=== PATIENT | female | born 1990 | race Caucasian/White ===

== ENCOUNTER 2020-10-05 01:52 | Observation (INO) | payer BC, SELFPAY ==
[2020-10-05] VITALS (14 sets, daily range): BP systolic 101–140; BP diastolic 56–119; PULSE 68–145; RESP 14–21; TEMP 35.8–37.1; O2SAT 99–100
--- NOTE | ~2020-10-05 | US_ITS ---
EXAMINATION: US pelvic complete w TV DATE: 10/05/2020 08:52 INDICATION: Incomplete . Hemorrhage. Comparison:No prior studies for comparison. TECHNIQUE: Multiple transabdominal and endovaginal sonographic images of the pelvis performed. FINDINGS: The uterus measures 10 x 5.9 x 6.8 cm. The endometrial complex measures 2.8 cm in the lower uterus. Endometrium is heterogeneous and ill-defined. The right ovary measures 2.4 x 1.5 x 1.6 cm. and the left ovary measures 2 x 1.4 x 2.4 cm. There are small follicles in each ovary. There is no free fluid in the pelvis. There are no abnormal masses seen on either side. IMPRESSION: 1. Thickened heterogeneous endometrium, suspicious for retained products of conception. Reviewed, dictated and finalized at location A. CE MANAGER IMPRESSION: 1. Thickened heterogeneous endometrium, suspicious for retained products of con ception.
--- NOTE | 2020-10-05 02:27 | ED.FEMALEGU ---
HPI - Female Genitourinary General Chief complaint: Vaginal Bleeding Stated complaint: vaginal bleeding Time Seen by Provider: 10/05/20 02:17 History of Present Illness HPI Narrative: Patient is a 29-year-old female who presents ER with vaginal bleeding. Patient found out 11 days ago that she was suffering a miscarriage at 10 weeks of . There is no heartbeat. Patient was doing expectant management at home. She had lost her mucous plug sometime last week. This evening she had a cline of water like her water broke. She then started having some bleeding. She started bleeding through a pad every 20 minutes beginning at 11 PM. Bleeding did not slow down and continued so she opted to come to the ER for further evaluation. No lightheadedness or dizziness. She is not having any lower abdominal pain. No fevers/chills/sweats. She is not on any blood thinners. She follows with Dr. Oglesby. Related Data Home Medications Medication Instructions Recorded Confirmed No Home Medications 10/05/20 Allergies Allergy/AdvReac Type Severity Reaction Status Date / Time No Known Allergies Allergy Verified 10/05/20 04:47 Review of Systems Review of Systems: All systems reviewed & are unremarkable except as noted in HPI and below Constitutional: Constitutional: Denies chills and Denies fatigue Gastrointestinal: Gastrointestinal: Denies abdominal pain, Denies nausea and Denies vomiting Genitourinary: Genitourinary: Reports abnormal vaginal bleeding, Denies dysuria, Denies pelvic pain and Denies vaginal discharge Neurologic: Denies confusion, Denies dizziness and Denies weakness PMFSH Past Medical History Medical History (Updated 10/05/20 @ 05:15 by Freeman Mendez MD) Healthy female adult Surgical History Surgical History (Updated 10/05/20 @ 02:29 by Freeman Mendez MD) No history of previous surgery Family History Family History (Updated 10/05/20 @ 04:58 by Dexter Acuna RN) Grandparent Cerebrovascular accident Mother Chronic obstructive pulmonary disease Mother Hypertension Social History Social History (Updated 10/05/20 @ 02:29 by Freeman Mendez MD) Smoking status: Never smoker Alcohol intake: never Substance use: never Substance use type: does not use Gender identity (if verbalized by the patient): Female Sexual Orientation (if Verbalized by the Patient): Straight or Heterosexual Spiritual care concerns: No Exam Narrative: Exam Narrative: GENERAL: Well-appearing, well-nourished, and in no acute distress. HEAD: Normocephalic, atraumatic. CHEST: Clear to auscultation. No respiratory distress. HEART: Tachycardic and regular. Normal peripheral pulses. ABDOMEN: Soft, nontender, nondistended. : Normal external genitalia. Large amount of clot within the vagina, when cleared there is some pooling of bright red blood without overt hemorrhage. Cervical os is open with products of conception protruding. Small amount able to be physically removed. EXTREMITIES: Normal range of motion. No edema. SKIN: Warm, dry, no rash. NEURO: Alert and oriented x3. Course Course Emergency Course: Patient heart rate significantly improved with 1 L IV fluid but then great increase her repeat IV fluid ordered. Discussed case with Dr. Oglesby. Is recommended patient be admitted for observation. Patient will receive Cytotec 1000 mcg vaginally to help with passage of products of conception. Patient verbalized understanding of treatment plan. Blood pressure stable. Vital Signs Vital signs: Vital Signs Temperature 96.4 F L 10/05/20 01:57 Pulse Rate 145 H 10/05/20 01:57 Respiratory Rate 18 10/05/20 01:57 Blood Pressure 140/92 H 10/05/20 01:57 Pulse Oximetry 100 10/05/20 01:57 Temperature 97.8 F 10/05/20 03:53 Pulse Rate 119 H 10/05/20 03:53 Respiratory Rate 21 H 10/05/20 03:53 Blood Pressure 117/74 10/05/20 03:53 Pulse Oximetry 100 10/05/20 03:53 [facility] -
[2020-10-05] MEDS: SODIUM CHLORIDE 0.9% IV 1,000 ML 999 ML IV CONT ×2 (02:32→03:51)
[2020-10-05 02:52] LABS: Anion Gap 11 mmol/L (8-16); Blood Urea Nitrogen 6 mg/dL (7-17); Carbon Dioxide 21 mmol/L (22-30); Chloride 105 mmol/L (98-107); Estimated CRCL calculation 151 ml/min; Estimated Glomerular Filt Rate > 60; Glucose 125 mg/dL (65-105); Potassium 3.6 mmol/L (3.4-5.0); Sodium 137 mmol/L (137-145)
[2020-10-05 02:59] LABS: Prothrombin Time 13.5 Seconds (11.1-14.7)
[2020-10-05 03:00] LABS: Partial Thromboplastin Time 28.1 SECONDS (22.3-36.8)
[2020-10-05 03:09] LABS: Basophils Absolute Auto 0.1 K/mm3 (0.0-0.1); Basophils Percent Auto 0.4 % (0.2-1.2); Eosinophils Absolute Auto 0.1 K/mm3 (0-0.3); Eosinophils Percent Auto 0.6 % (0-4.4); Hematocrit 34.1 % (37.0-47.0); Hemoglobin 11.6 g/dL (12.0-15.0); Immature Granulocyte Absolute 0.05 K/mm3 (0.00-0.031); Immature Granulocyte Percent A 0.4 % (0-0.5); Lymphocytes Absolute Auto 2.93 K/mm3 (0.9-3.2); Lymphocytes Percent Auto 21.1 % (18.3-44.2); Mean Corpuscular Hemoglobin 28.7 pg (26-34); Mean Corpuscular Volume 84.4 fl (80-100); Mean Platelet Volume 9.3 fl (7.4-10.4); Monocytes Absolute Auto 0.7 K/mm3 (0.1-0.6); Monocytes Percent Auto 4.8 % (2.6-8.5); Neutrophils Absolute Auto 10.1 K/mm3 (1.3-6.7); Neutrophils Percent Auto 72.7 % (45.5-73.1); Platelet Count Result 277 k/mm3 (150-375); Red Blood Count 4.04 M/mm3 (4.2-5.4); Red Cell Distribution Width 12.3 % (11.5-14.5); White Blood Count 13.9 K/mm3 (4.5-10.0)
[2020-10-05] MEDS: miSOPROStol 200 MCG TABLET 1000 MCG VAGINAL (03:50)
--- NOTE | 2020-10-05 04:46 | ADMGEN ---
This patient, Delma Valles, was admitted to Medical Room 349-01. Patient/family oriented to hospital policies and general routines including ID bracelet, bed and alarms, visiting hours, pain management, procedures, bathroom and other care routines, personal items, smoking policy, room service/diet, and visiting hours. Information on how to activate the Rapid Response Team has been discussed. Patient/Family are encouraged to report perceived risks to care and to ask questions if they do not understand what they are told or what they should do.
[2020-10-05] MEDS: SODIUM CHLORIDE 0.9% IV 1,000 ML 125 ML IV CONT (05:13)
--- NOTE | 2020-10-05 05:33 | PC.NURSE ---
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 c/o abd cramping after recieving cytotec in ed. tylenol 1,000mg iv. sbp down to 117. ivf's ns started at 125cc/hr. denies dizziness. instructed to rise slowly from seated or supine position. stat hh. recheck sbp 101. cont ivf's.
[2020-10-05 06:09] LABS: Hematocrit 29.1 % (37.0-47.0); Hemoglobin 9.8 g/dL (12.0-15.0)
--- NOTE | 2020-10-05 06:33 | PC.NURSE ---
called dr leong with up date on patient's bp and hh. orders recieved. dr mueller stated will see patient on rounds within the hour.
[2020-10-05 07:55] LABS: Hematocrit 25.8 % (37.0-47.0); Hemoglobin 8.8 g/dL (12.0-15.0)
--- NOTE | 2020-10-05 09:30 | PC.NURSE ---
Patient going down to surgery for D&C.
--- NOTE | 2020-10-05 09:43 | WPDANESEPPF ---
Anes - Initial Pre Proc Eval Procedure: Operation Date: 10/05/20 10:00 Proposed Procedures p Suction Dilation and Curettage - Tanner Oglesby MD Date/Time: 10/05/20 09:43 Surgeon: Tanner Oglesby MD Pre Op Diagnosis: miscarriage with hemorrhage Patient Data Age: 29 Gender: F Height: 1.57 m Weight: 90.72 kg Last Vital Signs Temp 37.1 C 10/05/20 06:07 Pulse 120 H 10/05/20 06:07 Resp 14 10/05/20 06:07 BP 140/78 10/05/20 06:07 Pulse Ox 100 10/05/20 06:07 Allergies Allergy/AdvReac Type Severity Reaction Status Date / Time No Known Allergies Allergy Verified 10/05/20 04:47 Home Medications Medication Instructions Recorded Confirmed Type No Home Medications 10/05/20 10/05/20 History Laboratory Tests 10/05/20 10/05/20 10/05/20 02:33 02:33 02:33 WBC 13.9 K/mm3 H K/mm3 (4.5-10.0) RBC 4.04 M/mm3 L M/mm3 (4.2-5.4) Hgb 11.6 g/dL L g/dL (12.0-15.0) Hct 34.1 % L % (37.0-47.0) MCV 84.4 fl fl (80-100) MCH 28.7 pg pg (26-34) MCHC 34.0 g/dl g/dl (32-36) RDW 12.3 % % (11.5-14.5) Plt Count 277 k/mm3 k/mm3 (150-375) MPV 9.3 fl fl (7.4-10.4) Immature Gran % (Auto) 0.4 % % (0-0.5) Neut % (Auto) 72.7 % % (45.5-73.1) Lymph % (Auto) 21.1 % % (18.3-44.2) [place] % (Auto) 4.8 % % (2.6-8.5) Eos % (Auto) 0.6 % % (0-4.4) Baso % (Auto) 0.4 % % (0.2-1.2) Lymph # (Auto) 2.93 K/mm3 K/mm3 (0.9-3.2) [place] # (Auto) 0.7 K/mm3 H K/mm3 (0.1-0.6) Eos # (Auto) 0.1 K/mm3 K/mm3 (0-0.3) Baso # (Auto) 0.1 K/mm3 K/mm3 (0.0-0.1) Abs Immat Gran (auto) 0.05 K/mm3 H K/mm3 (0.00-0.031) Absolute Neuts (auto) 10.1 K/mm3 H K/mm3 (1.3-6.7) Absolute Nucleated RBC 0.0 K/mm3 K/mm3 (0.0-0.012) Nucleated RBC % 0.0 % % (0.0-0.2) PT 13.5 Seconds Seconds (11.1-14.7) INR 1.0 APTT 28.1 SECONDS SECONDS (22.3-36.8) Sodium 137 mmol/L mmol/L (137-145) Potassium 3.6 mmol/L mmol/L (3.4-5.0) Chloride 105 mmol/L mmol/L (98-107) Carbon Dioxide 21 mmol/L L mmol/L (22-30) Anion Gap 11 mmol/L mmol/L (8-16) BUN 6 mg/dL L mg/dL (7-17) Creatinine 0.50 mg/dL L mg/dL (0.7-1.0) Estim Creat Clear Calc 151 ml/min ml/min Estimated GFR > 60 (59 - ) Glucose 125 mg/dL H mg/dL (65-105) Calcium 9.0 mg/dL mg/dL (8.4-10.2) Beta HCG, Quant 1351.70 mIU/ML mIU/ML Blood Type Antibody Screen Screen Baby's Blood Type Baby's JAIME Doses of RhIg Required 10/05/20 10/05/20 10/05/20 02:33 05:30 07:46 WBC RBC Hgb 9.8 g/dL L g/dL 8.8 g/dL L g/dL (12.0-15.0) (12.0-15.0) Hct 29.1 % L % 25.8 % L % (37.0-47.0) (37.0-47.0) MCV MCH MCHC RDW Plt Count MPV Immature Gran % (Auto) Neut % (Auto) Lymph % (Auto) [place] % (Auto) Eos % (Auto) Baso % (Auto) Lymph # (Auto) [place] # (Auto) Eos # (Auto) Baso # (Auto) Abs Immat Gran (auto) Absolute Neuts (auto) Absolute Nucleated RBC Nucleated RBC % PT INR APTT Sodium Potassium Chloride Carbon Dioxide Anion Gap BUN Creatinine Estim Creat Clear Calc Estimated GFR Glucose Calcium Beta HCG, Quant Blood Type B Positive Antibody Screen
[2020-10-05] MEDS: LACTATED RINGERS 1,000 ML 30 ML IV CONT ×2 (09:57→11:08)
--- NOTE | 2020-10-05 10:10 | PM.IMHP ---
H&P: HPI History of Present Illness Date/Time: 10/05/20 10:10 Chief complaint: miscarriage with hemorrhage Narrative: Delma Valles is a 29 year old female 1 at approximately 7 weeks gestation who presents for an incomplete AB with hemorrhage. She presented the ER. She was evaluated there. Patient was found have significant bleeding but appeared to slow. Her bleeding has persisted she has been observed in the hospital. An ultrasound revealed retained products conception. We have agreed to perform suction D&C. The patient understands that injuries can occur during the surgical procedures. She understands injuries may result in hospitalization, more surgery, and severe illness. She understands there is risk of hemorrhage and infection. Review of Systems Constitutional: Constitutional: Reports no additional constitutional complaints, Denies fatigue, Denies headache(s), Denies lethargy and Denies weakness Eyes: Eyes: Reports no additional eye complaints, Denies blurry vision and Denies photophobia ENT: Reports as per HPI, Denies headache(s) and Denies neck pain Cardiovascular: Cardiovascular: Denies chest pain, Denies diaphoresis, Denies leg edema, Denies palpitations and Denies dyspnea Respiratory: Respiratory: Denies hemoptysis, Denies dyspnea and Denies wheezing Gastrointestinal: Gastrointestinal: Denies abdominal pain, Denies melena, Denies bloating, Denies hematochezia, Denies nausea and Denies vomiting Genitourinary: Genitourinary: Reports no additional female genitourinary complaints Musculoskeletal: Musculoskeletal: Denies joint swelling, Denies neck pain, Denies numbness and Denies stiffness Neurologic: Denies Abnormal speech present, Denies confusion, Denies headache(s), Denies numbness and Denies weakness Psychiatric: Psychiatric: Denies anxiety, Denies confusion, Denies depression, Denies homicidal ideation and Denies suicidal ideation Endocrine: Endocrine: Denies fatigue and Denies palpitations Allergic/Immunologic: Allergic/Immunologic: Denies wheezing PMFSH Past Medical History Medical History (Updated 10/05/20 @ 05:15 by Freeman Mendez MD) Healthy female adult Surgical History Surgical History (Updated 10/05/20 @ 02:29 by Freeman Mendez MD) No history of previous surgery Family History Family History (Updated 10/05/20 @ 04:58 by Dexter Acuna RN) Grandparent Cerebrovascular accident Mother Chronic obstructive pulmonary disease Mother Hypertension Social History Social History (Updated 10/05/20 @ 02:29 by Freeman Mendez MD) Smoking status: Never smoker Alcohol intake: never Substance use: never Substance use type: does not use Gender identity (if verbalized by the patient): Female Sexual Orientation (if Verbalized by the Patient): Straight or Heterosexual Spiritual care concerns: No Meds Home Medications and Allergies Home Medications Medication Instructions Recorded Confirmed Type No Home Medications 10/05/20 10/05/20 History Allergies Allergy/AdvReac Type Severity Reaction Status Date / Time No Known Allergies Allergy Verified 10/05/20 04:47 Vital Signs Vital Signs - 24 hr 10/05/20 01:57 10/05/20 02:44 10/05/20 03:53 Temperature 96.4 F L 97.8 F Pulse Rate 145 H 119 H 119 H Respiratory Rate 18 18 21 H Blood Pressure 140/92 H 131/119 H 117/74 Pulse Oximetry 100 100 100 10/05/20 05:32 10/05/20 05:40 10/05/20 06:07 Temperature 98.2 F 98.7 F Pulse Rate 128 H 128 H 120 H Respiratory Rate 14 14 14 Blood Pressure 101/76 140/78 Pulse Oximetry 100 100 100 10/05/20 09:57 Temperature 98.8 F Pulse Rate 123 H Respiratory Rate 16 Blood Pressure 115/76 Pulse Oximetry 100 Exam Const: General: healthy appearing, comfortable and no acute distress; No confusion Orientation/consciousness: No confusion Eyes: Direct Ophthalmoscopy: No photophobia Resp: Auscultation: clear to auscultation bilaterally, no r
--- NOTE | 2020-10-05 10:12 | WPDHPUPDATE1 ---
History and Physical Update Update Date/Time: 10/05/20 10:12 History and Physical has been reviewed, including an updated exam of the patient. There are NO changes in the patient's condition. Risks, benefits, and alternatives have been discussed and questions answered. Patient agrees to proceed with procedure.
[2020-10-05] MEDS: LIDOCAINE HCL 1% LOCAL INJ 20 ML VIAL 8 ML INFILTRATE (10:52)
[2020-10-05] MEDS: ceFAZolin SODIUM 1 GM VIAL 2 GM IV PUSH (11:01)
--- NOTE | 2020-10-05 11:01 | PM.PROC ---
Procedure Note - Detailed Date of procedure: 10/05/20 Pre-op diagnosis: miscarriage with hemorrhage Post-op diagnosis: same Procedure performed: Suction D&C Description of procedure: The patient was taken the operating room. She has prepped and draped in dorsal lithotomy position after induction of mac anesthesia. A speculum was placed in the vagina. The cervix was grasped with a tenaculum. The cervix was injected at 3 and 9:00 a.m. with 1% lidocaine. The cervix was dilated up to 8 mm using Dean dilators. An 8 curved plastic suction curette was then applied to the intrauterine cavity. All of the surfaces in the intrauterine cavity were curettage under VAC. A sharp medium-size curette was then used to curettage all the surfaces to confirmed the removal of all the products conception. When all surfaces for bleed to be clean the curette was removed. The suction curette was then reapplied to remove all the debris. The procedure was terminated. The tenaculum was removed. The speculum was removed. The patient tolerated the procedure well. She was taken recovery room in stable condition. Anesthesia: MAC Surgeon: Tanner Oglesby MD Estimated blood loss (mL): 25 Drains: No Packing: No Pathology: yes Complications: No immediate complications Condition: stable Disposition: PACU Findings: Normal vulva vagina and cervix. Large POC's, open cervix with clot
[2020-10-05] MEDS: ONDANSETRON INJ 4 MG/2 ML VIAL IV PUSH (11:33)
--- NOTE | 2020-10-05 12:00 | PC.NURSE ---
Pt returned to floor from surgery.
[2020-10-05 13:00] LABS: Hematocrit 25.4 % (37.0-47.0); Hemoglobin 8.7 g/dL (12.0-15.0)
--- NOTE | 2020-10-31 20:19 | PM.DS ---
DS: Admitting Diagnosis Admitting Diagnosis Admitting Diagnosis: missed DS: Summary Hospital Course Reason for hospitalization: patient presented with missed . She was there less than a day. She was in the outpatient surgery area. She was treated was discharged later. Hospital Course: patient presented with missed . She was there less than a day. She was in the outpatient surgery area. She was treated was discharged later. Time spent discussing smoking cessation with patient: 3 to 10 minutes Status at Discharge Functional status at discharge: independent ambulation Overall status at discharge: patient is back to baseline Time Spent with Patient Time attestation: Total time spent providing and/or coordinating discharge services: DS: Data Data Completed and Pending Completed studies during hospitalization: Pending at discharge 10/05/20 10:46 Surgical [PTH] Routine Discharge Plan Discharge Consulting providers: Rick Saavedra Discharging Clinician: Tanner Oglesby Patient Disposition: Home, Self-Care Activity: may shower and pelvic rest Diet: as tolerated Discharge Instructions: Follow up with Dr. Oglesby's office in 1 week. Their phone number is [phone]. You may shower, but no baths for 2 weeks. No intercourse for 2 weeks. Patient Instructions: Antibiotic Form Stand Alone Forms: General Discharge Information Follow-up/Referrals: Tanner Oglesby MD [Physician] - Discharge Medications: No Action No Home Medications RF: 0 Date of admission: 10/05/20 03:20 Primary Care Provider: Damien,Tiki Argueta Admitting Provider: Tanner Oglesby Attending physician on admission: Tanner Oglesby Condition: Stable
== END 2020-10-05 14:12 | disposition home or self-care (01) ==
LOC: ANHED 03:06 → ANH3MED 03:55
PROVIDERS: Admitting Provider Obstetrics & Gynecology; Emergency Provider Emergency Medicine; PCP Nurse Practitioner Family; Visit Provider Obstetrics & Gynecology
PROC: (CPT 59820; principal; 2020-10-05 10:00)
DX: O03.4 Incomplete spontaneous abortion without complication (principal)
CPT/HCPCS: 59820; 36415; 76830; 76856; 80048; 84702; 85014; 85018; 85025; 85461; 85610; 85730; 88305; 96361; 96365; 99285; A9270; G0378; J0131; J0690; J1100; J1885; J2250; J2405; J2704; J3010; J7030; J7120

== ENCOUNTER 2021-10-23 04:59 | Inpatient (IN) | payer BC, SELFPAY ==
[2021-10-23] VITALS (26 sets, daily range): BP systolic 100–159; BP diastolic 54–100; PULSE 62–101; RESP 18–20; TEMP 36.6–36.9; BMI 40.7
[2021-10-23 05:56] LABS: Basophils Percent Auto 0.4 % (0.2-1.2); Eosinophils Percent Auto 0.2 % (0-4.4); Hemoglobin 11.5 g/dL (12.0-15.0); Immature Granulocyte Absolute 0.06 K/mm3 (0.00-0.031); Immature Granulocyte Percent A 0.6 % (0-0.5); Lymphocytes Absolute Auto 2.03 K/mm3 (0.9-3.2); Lymphocytes Percent Auto 18.8 % (18.3-44.2); Mean Corpuscular HGB Conc 33.8 g/dl (32-36); Mean Corpuscular Hemoglobin 28.1 pg (26-34); Mean Corpuscular Volume 83.1 fl (80-100); Mean Platelet Volume 10.2 fl (7.4-10.4); Monocytes Absolute Auto 0.7 K/mm3 (0.1-0.6); Monocytes Percent Auto 6.3 % (2.6-8.5); Neutrophils Absolute Auto 7.9 K/mm3 (1.3-6.7); Neutrophils Percent Auto 73.7 % (45.5-73.1); Platelet Count Result 253 k/mm3 (150-375); Red Blood Count 4.09 M/mm3 (4.2-5.4); Red Cell Distribution Width 14.2 % (11.5-14.5); White Blood Count 10.8 K/mm3 (4.5-10.0)
[2021-10-23 06:47] LABS: HIV 1/2 Ab P24 Ag Result Negative (Negative)
[2021-10-23] MEDS: LACTATED RINGERS 1,000 ML 125 ML IV CONT (12:40)
[2021-10-23] MEDS: OXYTOCIN 30 UNITS/NS 500 ML 30 UNITS/500 ML BAG IV CONT (12:40)
[2021-10-23] MEDS: fentaNYL CITRATE INJ (*CRX) 100 MCG/2 ML VIAL IV PUSH (13:39)
--- NOTE | 2021-10-23 16:00 | PM.OBPRVD ---
OB - Delivery Note Procedure Procedure: Patient pushed for a spontaneous vaginal delivery. The fetus was delivered atraumatically and placed on the maternal abdomen. The cord was clamped and cut after 1 minute of life. The cord was double clamped and cut and a segment of cord was collected for cord gases. Cord blood was collected for blood type and Coomb's testing. The placenta delivered spontaneously and was noted to be intact. The perineum was inspected and there was a 2nd degree perineal laceration. The laceration was repaired with 3-0 vicryl in the usual fashion. The uterus was firm and good hemostasis was noted. The patient and fetus were stable in the delivery room. Intrapartal events: None Induction method: none Delivery augmentation: pitocin Delivery monitor: external FHT Route of delivery: Episiotomy description: None Laceration Description: Perineal - 2nd Degree Delivery repair: vicryl Specimen: No Quantitative Blood Loss (ml): 350 Anesthesia type: None Disposition: floor () Complications: No immediate complications Baby Date of : 10/23/21 Time of : 15:35 Weeks of gestation at delivery: 39 gender: Male presentation: vertex position: Right Occiput Anterior Placenta delivery description: Spontaneous cord vessel description: 3 Vessels score one minute: 9 score five minutes: 9
--- NOTE | 2021-10-23 16:09 | PM.IMHP ---
H&P: HPI History of Present Illness Date/Time: 10/23/21 16:09 Chief Complaint: Intrauterine at term Narrative: 30 yo at 39w4d who presents after SROM. Pt reports a large gush of clear fluid at home around 0330. She reports regular contractions. She denies any vaginal bleeding. Her is complicated by history of 3rd degree lacerations. Review of Systems Cardiovascular: Cardiovascular: Denies chest pain, Denies leg edema, Denies palpitations, Denies dyspnea and Denies dyspnea on exertion Respiratory: Respiratory: Denies cough, Denies dyspnea and Denies dyspnea on exertion Gastrointestinal: Gastrointestinal: Denies abdominal pain, Denies constipation, Denies diarrhea, Denies nausea and Denies vomiting Genitourinary: Genitourinary: Denies hematuria, Denies urinary frequency, Denies dysuria, Denies pelvic pain, Denies urinary incontinence and Denies vaginal discharge Neurologic: Reports system reviewed and no additional complaints, except as documented Psychiatric: Psychiatric: Reports no additional psychiatric complaints Endocrine: Endocrine: Denies palpitations PMFSH Past Medical History Medical History (Updated 10/23/21 @ 16:11 by Choco Beckman MD) Healthy female adult Surgical History Surgical History (Updated 10/05/20 @ 02:29 by Freeman Mendez MD) No history of previous surgery Family History Family History (Updated 09/26/21 @ 15:42 by Kirt Glynn RN) Grandparent Cerebrovascular accident Mother Chronic obstructive pulmonary disease Hypertension Father Multiple sclerosis Sibling Bipolar 1 disorder Social History Social History (Updated 10/05/20 @ 02:29 by Freeman Mendez MD) Smoking status: Never smoker Alcohol intake: never Substance use: never Substance use type: does not use Gender identity (if verbalized by the patient): Female Sexual Orientation (if Verbalized by the Patient): Straight or Heterosexual Spiritual care concerns: No Meds Home Medications and Allergies Home Medications Medication Instructions Recorded Confirmed Type docusate sodium [Colace] 300 mg PO DAILY 09/26/21 09/26/21 History prenat.vits,kunal,ugd-nbyz-rbone 1 tablet PO DAILY 09/26/21 09/26/21 History [ #2] Allergies Allergy/AdvReac Type Severity Reaction Status Date / Time No Known Allergies Allergy Verified 09/26/21 15:36 Vital Signs Vital Signs - 24 hr 10/23/21 05:57 10/23/21 06:01 10/23/21 07:00 Temperature 36.8 C Pulse Rate 80 82 Respiratory Rate 18 Blood Pressure 131/83 131/67 10/23/21 07:06 10/23/21 08:37 10/23/21 09:36 Temperature Pulse Rate 84 81 88 Respiratory Rate Blood Pressure 131/71 127/81 136/83 10/23/21 09:40 10/23/21 11:38 10/23/21 12:46 Temperature 36.6 C 36.9 C Pulse Rate 77 77 Respiratory Rate 18 20 Blood Pressure 138/74 138/89 10/23/21 13:38 10/23/21 13:39 10/23/21 14:01 Temperature 36.7 C Pulse Rate 84 83 Respiratory Rate 20 Blood Pressure 137/78 147/100 H 10/23/21 14:05 10/23/21 14:31 10/23/21 15:01 Temperature Pulse Rate 82 81 88 Respiratory Rate Blood Pressure 136/86 159/79 H 138/75 10/23/21 16:06 Temperature Pulse Rate 101 H Respiratory Rate Blood Pressure 130/74 Exam Const: General: no acute distress Eyes: EOM: EOMs intact bilaterally Neck: Neck: supple Thyroid: thyroid normal Chest: Breast/axilla inspection: normal inspection of the breasts Breast/axilla palpation: normal palpation of the breasts, normal palpation of the axillae and no axillary lymphadenopathy Resp: Effort & Inspection: normal respiratory effort Auscultation: clear to auscultation bilaterally Cardio: Rate: regular rate Rhythm: regular rhythm GI: Inspection: non-distended and other (Gravid) GI Palp: Yes Soft to palpation, No Tenderness to palpation present (GI) and No Guarding due to palpation present (GI) Auscultation: normal bowel sounds : Speculu
[2021-10-23] MEDS: OXYTOCIN 30 UNITS/NS 500 ML 30 UNITS/500 ML BAG 125 UNITS IV CONT (16:16)
[2021-10-23] MEDS: WITCH HAZEL 40 PADS 1 PAD TOPICAL (18:13)
[2021-10-23] MEDS: BENZOCAINE 20% AER SPR (*SP) 56 GM CAN 1 SPRAY TOPICAL (18:13)
--- NOTE | 2021-10-23 18:45 | ADMGEN ---
This patient, Delma Valles, was admitted to OB Post 111-00. Patient/family oriented to hospital policies and general routines including ID bracelet, bed and alarms, visiting hours, pain management, procedures, bathroom and other care routines, personal items, smoking policy, room service/diet, and visiting hours. Information on how to activate the Rapid Response Team has been discussed. Patient/Family are encouraged to report perceived risks to care and to ask questions if they do not understand what they are told or what they should do.
[2021-10-23] MEDS: SIMETHICONE 80 MG TAB.CHEW PO (19:00)
[2021-10-23] MEDS: ACETAMINOPHEN 325 MG TABLET 650 MG PO (19:00)
[2021-10-23] MEDS: IBUPROFEN 600 MG TABLET PO (19:03)
[2021-10-24] MEDS: IBUPROFEN 600 MG TABLET PO ×2 (00:48→08:33)
[2021-10-24] MEDS: ACETAMINOPHEN 325 MG TABLET 650 MG PO ×2 (00:48→08:33)
[2021-10-24] MEDS: SIMETHICONE 80 MG TAB.CHEW PO (00:48)
[2021-10-24 03:43] VITALS: BP 109/61; PULSE 72; TEMP 36.7
[2021-10-24 04:12] LABS: Hematocrit 25.3 % (37.0-47.0); Hemoglobin 8.7 g/dL (12.0-15.0)
--- NOTE | 2021-10-24 06:13 | PC.NURSE ---
Patient transferred to post room #286 ambulatory from labor and delivery. Support person present. Oriented to unit, room, information board, rooming in, admission packet and security measures. Patient verbalizes understanding.
[2021-10-24 08:15] VITALS: BP 95/47; PULSE 77; RESP 18; TEMP 36.4
[2021-10-24] MEDS: DOCUSATE SODIUM 100 MG CAPSULE PO (08:32)
[2021-10-24] MEDS: MULTIVIT/MIN/PREN/FOL AC/IRON TABLET 1 TAB PO (08:33)
[2021-10-24] MEDS: POLYSACCHARIDE IRON COMPLEX 150 MG CAPSULE PO (08:33)
[2021-10-24 09:28] LABS: Rapid Plasma Reagin Non-Reactive (NonReactive)
[2021-10-24 12:00] VITALS: BP 102/63; PULSE 70; RESP 18; TEMP 36.9
--- NOTE | 2021-10-24 13:30 | PM.OBPNVD ---
OB - PN: Subj Subjective Date/time seen: 10/24/21 13:30 Narrative: Pain OK. Would like circumcision for son. Would like to go home. Had some mild depression after first delivery. OB - PN: Obj Data Labs CBC & Chem 7: 10/24/21 03:47 Labs: Laboratory Results - last 24 hr 10/23/21 10/24/21 05:40 03:47 Hgb 8.7 L Hct 25.3 L RPR Non-reactive OB - PN A/P Plan Comments: A: PPD#1, doing well. P: Reviewed circ. Try fluoxetine 20 mg daily. Reviewed instructions / precautions / risks / benefits. Home to f/u 6 weeks. Exam Psych: Other: AVSS ABD soft, nontender, fundus firm EXT nontender
--- NOTE | 2021-10-24 13:32 | PM.OBDSVD ---
DS: Admitting Diagnosis Discharge Date 10/24/21 Admitting Diagnosis Labor at term DS: Discharge Diagnosis Discharge Diagnosis (1) (normal spontaneous vaginal delivery): Code(s): O80 - Encounter for full-term uncomplicated delivery Status: Acute OB - DS: Summary OB Procedures : None OB Procedures Intrapartum: Spontaneous Vag Delivery OB Procedures: : None DS: Data Data Completed and Pending Labs on day of discharge: Labs from last 24 hours 10/24/21 10/23/21 03:47 05:40 Hgb 8.7 L Hct 25.3 L RPR Non-reactive Discharge Plan Discharge Attending physician on discharge: Lucien Johnston Discharging Clinician: Lucien Johnston Patient Disposition: Home, Self-Care Activity: pelvic rest Diet: regular Discharge Instructions: Call or return if temperature above 100.4? F, increased abdominal pain, increased vaginal bleeding or any new problems. Stand Alone Forms: General Discharge Information Follow-up/Referrals: Lucien Johnston MD [Physician] - 6 Weeks Discharge Medications: New ferrous sulfate 325 mg (65 mg iron) tablet 325 mg PO DAILY Qty: 30 RF: 0 ibuprofen 600 mg tablet 600 mg PO Q6H PRN (Reason: cramps) Qty: 30 RF: 0 fluoxetine 20 mg capsule 20 mg PO DAILY Qty: 30 RF: 1 Continued #2 Tablet 1 tablet PO DAILY RF: 0 docusate sodium [Colace] 100 mg Capsule 300 mg PO DAILY RF: 0 Date of admission: 10/23/21 04:59 Primary Care Provider: Damien,Tiki Argueta Admitting Provider: Lucien Johnston Attending physician on admission: Lucien Johnston Condition: Stable
--- NOTE | 2021-10-24 16:30 | PC.NURSE ---
Patient instructed to view the discharge video Mother [facility] Baby [facility], The First Two Weeks . Patient was given the opportunity and encouraged to ask questions. Patient verbalized understanding of information shared and has been given the mother/baby guide for home reference.
[2021-10-26 08:51] VITALS: BP 117/69; PULSE 85; RESP 20; TEMP 36.5; O2SAT 99
== END 2021-10-24 17:50 | disposition home or self-care (01) | DRG 807 ==
LOC: ANHLDR 05:21 → ANHOBPP 19:11 → ANHOB2 10-24 06:33
PROVIDERS: Admitting Provider Student in an Organized Health Care Education/Training Program; PCP Nurse Practitioner Family; Visit Provider Obstetrics & Gynecology
DX: O70.1 Second degree perineal laceration during delivery (principal); Z37.0 Single live birth; Z3A.39 39 weeks gestation of pregnancy
CPT/HCPCS: 36415; 84112; 85014; 85018; 85025; 86592; 86703; 86850; 86900; 86901; A9270; G0432; J2590; J2795; J3010; J7120

== ENCOUNTER → 2022-06-08 08:43 | Outpatient (CLI) | payer BC, SELFPAY ==
--- NOTE | ~2022-06-08 | US_ITS ---
EXAMINATION: US abdomen complete DATE: 06/08/2022 09:06 INDICATION: Elevated liver enzymes TECHNIQUE: Multiple grayscale and Doppler ultrasound images of the abdomen were obtained. COMPARISON: None available FINDINGS: The head, body, and tail of the pancreas are normal. The liver demonstrates increased echog enicity, heterogenous echotexture, and decreased through transmission. No surface nodularity. Normal hepatopetal flow in the main portal vein. The gallbladder is normal with no abnormal wall thickening, pericholecystic fluid or stones. The normal common bile duct measures 3 mm. There was no sonographic Helm sign. The visualized portions of the aorta and inferior vena cava are normal. The right kidney measures 11 x 4.7 x 5.6 cm. The left kidney measures 10.6 x 4.3 x 4.1 cm. The kidney s demonstrate normal parenchymal echogenicity. There is no hydronephrosis. The spleen is normal in ap pearance and measures 10.5 cm. IMPRESSION: 1. Diffuse hepatic steatosis. Reviewed, dictated and finalized at location A.
== END ==
PROVIDERS: PCP Internal Medicine; Visit Provider Internal Medicine
DX: R74.8 Abnormal levels of other serum enzymes (principal); K76.0 Fatty (change of) liver, not elsewhere classified
CPT/HCPCS: 76700

== ENCOUNTER 2025-02-23 09:47 | Outpatient (CLI) | payer OTHER, SELFPAY ==
[2025-02-23 10:08] LABS: Hematocrit 31.4 % (37.0-47.0); Hemoglobin 9.7 g/dL (12.0-15.0)
[2025-02-23 10:22] LABS: Glucose Fasting Gestational 97 mg/dL (>/=95)
--- OUTSIDE RECORDS SUMMARY | 2025-02-23 10:34 | XMS_ITS | Data Portability ---
Author Organization [facility] [place] Address [address] [place] [address] [place] [address] Assessment Encounter Date Assessment Date Assessment LastModified by Organization Details LastModified Time 05/21/2021 05/21/2021 Patient is ___weeks . Discussed plan. [email or web address] Not available 05/21/2021 12:02:29 Plan of Treatment Reminders Order Date Submit Date Provider Last Modified By Organization Details Last Modified Time Details Appointments None recorded. Lab drug screen, urine 2020 021 [email or web address] [place], [address], [place], [address], 10:29:00 Referral None recorded. Procedures None recorded. Surgeries None recorded. Imaging US, obstetric, limited 2020 021 TOMÁS [place], [address], [place], [address], 21:59:55 US, obstetric, 1st trimester 2020 021 [email or web address] [place], [address], [place], [address], 21:54:07 Medication Orders None recorded. Patient TargetsNo targets recorded. Patient InstructionsNo instructions recorded. Reason for Referral None Reported. Results Created Date Observation Date Name Description Value Unit Range Abnormal Flag Note LastModifiedBy Organization Detail LastModifiedTime 03/03/20 21 03/03/2021 pap, IG + HR HPV image guided Pap, HPV regardless of Pap result SEE RESULT S BELOW CASE REPOR T: Cytol ogy Gynec ologi [place]akota Repor t Case: [id number] Autho vickieradhaandrew hedrick Provi jeremie: Sarika Navarro CNM Colle cted: 03/03 1002 Order ing Locat ion: [place] Patho logy Recei judah: 03/04 0733 First Scree n: Salima Etienne , CT Speci men: Scree victor hugo Pap - Image d, Cervi x STATE MENT OF ADEQU ACY: Satis facto ry for evalu ation Trans forma tion zone compo nent prese nt FINAL DIAGN OSIS: Negat sigrid for Intra epith elial Lesio n or Anahi genao nuria d by Salima Etienne , CT on 2020 at 4:37 PM ----- ----- ----- ----- ----- ----- ----- ----- ----- ----- ----- ----- ----- ----- ----- ----- ----- ---- HPV RESUL TS: HPV mRNA E6/E7 : No HPV mRNA Detec darlene NOTE: This high risk HPV mRNA assay detec ts fourt een high- risk HPV types (16, 18, 31, 33, 35, 39, 45, 51, 52, 56, 58, 59, 66, 68) witho ut diffe renti ation . CHART ABLE COMME NT: Note: This speci men was revie wed by a Cytot echno logis t and/o r Patho logis t (as indic ated in this repor t) after evalu ation using the Thinp rep Imagi ng Syste m. CLINI [place] INFOR MATIO N: Menst rual Statu s: LMP (if appli cable ): 2020 Clini [facility] Histo ry/Pr eviou s Pap: Type of Neopl reshma (if appli cable ): Other Histo ry: Hormo kingsley (if appli cable ): PAP EDUCA MANOLO L NOTE: The Pap Test is a scree victor hugo test with an inher ent false negat sigrid rate. Liqui d-bas e sampl ing may decre ase, but will not elimi desire, false negat sigrid resul ts. A negat sigrid resul t does not precl ude the prese nce and/o r devel opmen t of disea se, since the prese nce of abnor mal cells in the sampl e depen ds on the locat ion of the lesio n and sampl ing techn ique. Jessica nued regul ar scree victor hugo is the best metho d of cance r preve ntion . If repor darlene cytol ogic findi ng do not corre late with physi dakota and/o r histo rical findi ngs, furth er inves tigat ion is recom dora d, as clini tavia mattson nted. Not Available [facility] (Lab) [address], [place], [address], 03/06/2021 17:40:23 03/03/20 21 03/03/2021 trich omona s vagin arcenio RNA trichomonas vaginalis ribosomal RNA (rrna) Negati ve negati ve Not Available [facility] (Lab) [address], [place], [address], 03/06/2021 17:40:23 03/03/20 21 03/03/2021 CT + NG RNA, PCR, unspe cifie d speci men chlamydia trachomatis, PCR Negati ve negati ve Not Available [facility] (Lab) [address] [place], [address], 03/06/2021 17:40:24 03/03/20 21 03/03/2021 CT + NG RNA, PCR, unspe cifie d speci men neisseria gonorrhoeae, PCR Negati ve negati ve Not Available [facility] (Lab) [address] [place], [address], 03/06/2021 17:40:24 03/03/20 21 03/03/2021 pregn lucrecia test, urine HCG positi ve Not Available [address], [place], [address], 03/03/2021 11:01:43 04/14/20 21 04/14/2021 CBC W/DIF F WBC 9.1 10'3/ uL 3.6-10 .2 Not Available [facility] (Lab) [address], [place], [address], 04/15/2021 14:59:52 04/14/20 21 04/14/2021 CBC W/DIF F RBC 4.30 10'6/ uL (based on docume nted legal sex) 4.10-5 .30 Not Available [facility] (Lab) [address], [place], [address], 04/15/2021 14:59:52 04/14/20 21 04/14/2021 CBC W/DIF F HGB 11.8 g/dL (based on docume nted legal sex) 11.9-1 5.8 low Not Available [facility] (Lab) [address], [place], [address], 04/15/2021 14:59:52 04/14/20 21 04/14/2021 CBC W/DIF F HCT 37.1 % (based on docume nted legal sex) 37.4-4 8.3 low Not Available [facility] (Lab) [address], [place], [address], 04/15/2021 14:59:52 04/14/20 21 04/14/2021 CBC W/DIF F MCV 87.0 fL 82.0-9 9.0 Not Available [facility] (Lab) [address] [place], [address], 04/15/2021 14:59:52 04/14/20 21 04/14/2021 CBC W/DIF F MCH 28.0 pg 27.0-3 3.0 Not Available [facility] (Lab) [address] [place], [address], 04/15/2021 14:59:52 04/14/20 21 04/14/2021 CBC W/DIF F MCHC 32.0 g/dL 32.0-3 6.0 Not Available [facility] (Lab) [address], [place], [address], 04/15/2021 14:59:52 04/14/20 21 04/14/2021 CBC W/DIF F RDW 14.0 % 11.0-1 5.0 Not Available [facility] (Lab) [address], [place], [address], 04/15/2021 14:59:52 04/14/20 21 04/14/2021 CBC W/DIF F plt 330 10'3/ uL 150-45 0 Not Available [facility] (Lab) [address], [place], [address], 04/15/2021 14:59:52 04/14/20 21 04/14/2021 CBC W/DIF F MPV 9.9 fL Not Available [facility] (Lab) [address], [place], [address], 04/15/2021 14:59:52 04/14/20 21 04/14/2021 CBC W/DIF F NRBC's 0.00 % 0 Not Available [facility] (Lab) [address] [place], [address], 04/15/2021 14:59:52 04/14/20 21 04/14/2021 CBC W/DIF F absolute NRBCs 0.0 10'3/ uL 0 Not Available [facility] (Lab) [address] [place], [address], 04/15/2021 14:59:52 04/14/20 21 04/14/2021 CBC W/DIF F neutrophils 77.0 % 37.0-7 2.0 high Not Available [facility] (Lab) [address] [place], [address], 04/15/2021 14:59:52 04/14/20 21 04/14/2021 CBC W/DIF F lymphocytes 17.0 % 16.0-4 8.0 Not Available [facility] (Lab) [address], [place], [address], 04/15/2021 14:59:52 04/14/20 21 04/14/2021 CBC W/DIF F monocytes 5.0 % 4.0-14 .0 Not Available [facility] (Lab) [address], [place], [address], 04/15/2021 14:59:52 04/14/20 21 04/14/2021 CBC W/DIF F eosinophils 1.0 % 0.0-9. 0 Not Available [facility] (Lab) [address], [place], [address], 04/15/2021 14:59:52 04/14/20 21 04/14/2021 CBC W/DIF F basophils 0.0 % 0.0-2. 0 Not Available [facility] (Lab) [address], [place], [address], 04/15/2021 14:59:52 04/14/20 21 04/14/2021 CBC W/DIF F immature granulocytes 0.0 % no define d refere nce range Not Available [facility] (Lab) [address] [place], [address], 04/15/2021 14:59:52 04/14/20 21 04/14/2021 CBC W/DIF F absolute neutrophils 7.0 10'3/ uL 1.1-6. 0 high Not Available [facility] (Lab) [address] [place], [address], 04/15/2021 14:59:52 04/14/20 21 04/14/2021 CBC W/DIF F absolute lymphocytes 1.5 10'3/ uL 0.7-3. 4 Not Available [facility] (Lab) [address], [place], [address], 04/15/2021 14:59:52 04/14/20 21 04/14/2021 CBC W/DIF F absolute monocytes 0.5 10'3/ uL 0.3-1. 0 Not Available [facility] (Lab) [address] [place], [address], 04/15/2021 14:59:52 04/14/20 21 04/14/2021 CBC W/DIF F absolute eosinophils 0.1 10'3/ uL 0.0-0. 6 Not Available [facility] (Lab) [address], [place], [address], 04/15/2021 14:59:52 04/14/20 21 04/14/2021 CBC W/DIF F absolute basophils 0.0 10'3/ uL 0.0-0. 1 Not Available [facility] (Lab) [address], [place], [address], 04/15/2021 14:59:52 04/14/20 21 04/14/2021 CBC W/DIF F absolute immature granulocytes 0.00 10'3/ uL 0.00-0 .10 2020 3:00 AM: P indic ates parti al resul ts on a panel have been relea sed. Addit ional resul ts will follo w. 2020 3:00 AM: This resul t has been final verif ied. No addit ional or nunez ed resul ts are expec darlene. Not Available [facility] (Lab) [address], [place], [address], 04/15/2021 14:59:52 04/14/20 21 04/14/2021 HEMOG LOBIN A1C hemoglobin A1C 5.3 % 0-5.6 The Ameri can Diabe dawna [employer] iatio n recom mends that a prima ry goal of therade anderson be a HBA1C of < 7% and that physi cians neo d reeva luate the treat ment regim en in patie nts with HBA1C value s consi stent ly > 8%. <5.7% Kathy l 5.7 - 6.4% Incre ased risk for diabe dawna >=6.5 % Diagn ostic of diabe dawna <7.0% Goal of thera py >8.0% Actio n sugge sted Not Available [facility] (Lab) [address], [place], [address], 04/15/2021 14:59:52 04/14/20 21 04/14/2021 HEPAT ITIS B SURFA CE ANTIG EN hepatitis B surface antigen Non-re active non-re active This assay was perfo rmed using [employer] n reage nts and test kits. Value s obtai mirtha with other assay metho ds or kits canno t be used inter nunez eably . Not Available [facility] (Lab) [address], [place], [address], 04/15/2021 14:59:53 04/14/20 21 04/14/2021 HEPAT ITIS C ANTIB SAJAN SCREE N, REFLE X TO CONFI RMATI ON hepatitis C antibody Non-re active non-re active This assay was perfo rmed using [employer] reage nts and test kits. Value s obtai mirtha with other assay metho ds or kits canno t be used inter nunez eably . Not Available [facility] (Lab) [address], [place], [address], 04/15/2021 14:59:53 04/14/20 21 04/14/2021 RUBEL LA IGG ANTIB SAJAN, QUANT rubella antibodies, IgG Reacti ve reacti ve Not Available [facility] (Lab) [address] [place], [address], 04/15/2021 14:59:54 04/14/20 21 04/14/2021 RUBEL LA IGG ANTIB SAJAN, QUANT rubella antibodies, IgG quant 13.9 IU/mL >=10 Non-r eacti ve (Non- Immun e) <10 IU/mL React sigrid (Immu ne) > or = 10 IU/mL Not Available [facility] (Lab) [address], [place], [address], 04/15/2021 14:59:54 04/14/20 21 04/14/2021 TYPE/ RH/SC REEN ABO/Rh type B POS Not Available [facility] (Lab) [address], [place], [address], 04/15/2021 14:59:54 04/14/20 21 04/14/2021 TYPE/ RH/SC REEN antibody screen NEG Not Available [facility] (Lab) [address], [place], [address], 04/15/2021 14:59:54 04/14/20 21 04/14/2021 TYPE/ RH/SC REEN exp date 2020 23:59 Not Available [facility] (Lab) [address], [place], [address], 04/15/2021 14:59:54 04/14/20 21 04/14/2021 HIV 1/2 ANTIG EN/AN TIBOD Y, REFLE X CONFI RMATI ON HIV Ag-Ab total quant 0.08 idx <1.00 Not Available [facility] (Lab) [address] [place], [address], 04/15/2021 14:59:55 04/14/20 21 04/14/2021 HIV 1/2 ANTIG EN/AN TIBOD Y, REFLE X CONFI RMATI ON HIV Ag-Ab total Non-re active non-re active Not Available [facility] (Lab) [address] [place], [address], 04/15/2021 14:59:55 04/14/20 21 04/14/2021 HIV 1/2 ANTIG EN/AN TIBOD Y, REFLE X CONFI RMATI ON HIV-1 antibody quant 0.08 idx <1.00 Not Available [facility] (Lab) [address] [place], [address], 04/15/2021 14:59:55 04/14/20 21 04/14/2021 HIV 1/2 ANTIG EN/AN TIBOD Y, REFLE X CONFI RMATI ON HIV-1 antibody Non-re active non-re active Not Available [facility] (Lab) [address] [place], [address], 04/15/2021 14:59:55 04/14/20 21 04/14/2021 HIV 1/2 ANTIG EN/AN TIBOD Y, REFLE X CONFI RMATI ON HIV-1 antigen (P24) quant 0.07 idx <1.00 Not Available [facility] (Lab) [address] [place], [address], 04/15/2021 14:59:55 04/14/20 21 04/14/2021 HIV 1/2 ANTIG EN/AN TIBOD Y, REFLE X CONFI RMATI ON HIV-1 antigen (P24) Non-re active non-re active Not Available [facility] (Lab) [address] [place], [address], 04/15/2021 14:59:55 04/14/20 21 04/14/2021 HIV 1/2 ANTIG EN/AN TIBOD Y, REFLE X CONFI RMATI ON HIV-2 antibody quant 0.05 idx <1.00 Not Available [facility] (Lab) [address] [place], [address], 04/15/2021 14:59:55 04/14/20 21 04/14/2021 HIV 1/2 ANTIG EN/AN TIBOD Y, REFLE X CONFI RMATI ON HIV-2 antibody Non-re active non-re active HIV testi ng is perfo rmed using Multi plex- Bead Immun oassa y techn ology . The final overa ll HIV Ag-Ab resul t is deter mined based on the final resul t for each indiv idual alfa te. If any of the alfa dawna has 2 or more repli cates that are REACT SIGRID, the final overa ll HIV Ag-Ab resul t is also React sigrid. A Non-R eacti ve test resul t at any point in the inves tigat ion of indiv idual subje cts does not precl ude the possi bilit y of expos ure to or infec tion with HIV-1 and/o r HIV-2 . Non-R eacti ve resul ts can occur if the quant ity of marke r prese nt in the sampl e is below the detec tion limit s of the assay . React sigrid speci mens must be inves tigat ed by addit ional , more speci fic suppl ement al tests . Speci men confi rmati on will be perfo rmed by the [employer] us HIV 1/2 Suppl ement al Assay . The perfo rmanc e of this assay has not been estab lishe d for neona dawna and the assay shoul d not be used in indiv idual s young er than 2 years of age. Not Available [facility] (Lab) [address] [place], [address], 04/15/2021 14:59:55 04/14/20 21 04/14/2021 RPR SCREE N/REF RONEN TITER /FTA RPR screen Nonrea ctive nonrea ctive Not Available [facility] (Lab) [address] [place], [address], 04/15/2021 14:59:55 04/14/2004/14/2021 CULTU RE: URINE result report SEE RESULT S BELOW Test: Cultu re: Urine Speci men Sourc e: Urine Voide d Speci men Type: Urine Speci men Date: 2020 10:26 AM Resul t Date: 2020 9:33 PM Resul t Statu s: Final resul t Abnor mal: No Resul ting Lab: [facility] [address] [address] Tel: CULTU RE ----- ----- ----- --- No growt h in 1 day (dete ction level of 10,00 0 colon ies / ml.) Not Available [facility] (Lab) [address], [place], [address], 04/15/2021 22:38:02 04/14/20 21 04/14/2021 drug scree n, urine Amphetamines : negati ve Not Available [place] [address], [place], [address], 04/14/2021 10:28:31 04/14/20 21 04/14/2021 drug scree n, urine Cannabinoids : negati ve Not Available [place] [address], [place], [address], 04/14/2021 10:28:31 04/14/20 21 04/14/2021 drug scree n, urine Cocaine: negati ve Not Available [place] [address], [place], [address], 04/14/2021 10:28:31 04/14/20 21 04/14/2021 drug scree n, urine Opiates: negati ve Not Available [place] [address], [place], [address], 04/14/2021 10:28:31 04/14/20 21 04/14/2021 drug scree n, urine Benzodiazepi kingsley: negati ve Not Available [place] [address], [place], [address], 04/14/2021 10:28:31 03/03/20 21 03/09/2021 US, obste tric, trans vagin al No observ ation record ed. [place] [address], [place], [address], 03/09/2021 11:38:25 03/03/20 21 03/03/2021 US, obste tric, trans vagin al No observ ation record ed. [email or web address] [address], [place], [address], 04/14/2021 11:27:29 04/14/20 21 04/14/2021 US, obste tric, 1st trime ster No observ ation record ed. [email or web address] [place] [address], [place], [address], 04/14/2021 17:16:44 04/14/20 21 04/14/2021 US, obste tric, 1st trime ster No observ ation record ed. [email or web address] [address], [place], [address], 04/15/2021 14:17:00 05/16/20 21 05/16/2021 US, obste tric No observ ation record ed. [email or web address] [address], [place], [address], 05/18/2021 11:55:12 05/16/20 21 05/16/2021 US, obste tric, limit ed No observ ation record ed. [email or web address] [place] [address], [place], [address], 05/16/2021 14:26:59 06/06/20 21 06/06/2021 US, obste tric, follo w-up No observ ation record ed. [email or web address] [facility] (Psychiatry Department) [address], [place], [address], 06/07/2021 09:10:14 06/06/20 21 06/06/2021 US, obste tric, follo w-up No observ ation record ed. [address] [facility] [address], [place], [address], 06/07/2021 10:30:46 Result Notes None recorded. Problems Name Problem SNOMED Code Status Onset Date Resolution Date Notes Provider Name and Address Organization Details Recorded Time Missed miscarri age 65262723 Completed 201903/02/2021 Celine lockhart, [facility] 09:58:33 Pregnanc y 16531129 Completed 202009/05/2021 [place] [facility], [facility] 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 Level II & Consult 06/06 8:00AM & 9:30AM 7th floor [address] Charlottek[place] Tade[facility], [facility] 12:19:13 Obesity [id number] Completed BMI 39 - antenata l testing at 37 wks [place] [facility], [facility] 12:19:[address] Concept Completed 201603/02/2021 Encntr for it risk advisor exam (general ) (routine ) w/o abn findings ;Recorde d Elsewher e: No Locat ion: [facility] S ource: E[employer] Consultant gina: N Lisha ce ID: [email or web address] Jamari lable Time: 10:30:00 AM [facility] 09:58:46 Lochia finding Completed 201803/02/2021 Encounte r for routine postpart um follow-u p;Harlanti ce ID: 0001 Celine Cortes [facility] 09:58:53 Pregnanc y detectio n examinat ion Completed 201703/02/2021 Encounte r for pregnanc y test, result positive ;Recorde d Elsewher e: No [facility]: E[employer] Consultant gina: N Practi ce ID: 0001 Jamari lable Time: 08:45:00 AM Celine lockhart, [facility] 09:59:02 Pregnanc y, childbir th and puerperi um finding Completed 201803/02/2021 Encntr for suprvsn of normal first preg, third trimeste r;Record ed Elsewher e: No Locat ion: [facility] S ource: E[employer] Consultant gina: N Practi ce ID: 0001 Jamari lable Time: 09:15:00 AM Celine [place] lock[place], [facility] 09:58:52 Gestatio n period, 24 weeks [id number] Completed 201703/02/2021 24 weeks gestatio n of pregnanc y;Record ed Elsewher e: No Locat ion: [facility] S ource: [employer] Consultant gina: N Practi ce ID: [id number] Jamari lable Time: 10:30:00 AM Celine lockhart, [facility] 09:58:45 Rubella screenin g status [id number] Completed 201703/02/2021 Encounte r for antenata l screenin g, unspecif ied;Jose Luis rded Elsewher e: No Locat ion: [facility] S ource: E[employer] Consultant gina: N Practi ce ID: 0001 Jamari lable Time: 09:30:00 AM Celine [place] lock[place], [facility] 09:58:43 Hemorrha gic complica tion of pregnanc y [id number] Completed 201703/02/2021 Antepart um hemorrha ge, unspecif ied, first trimeste r;Record ed Elsewher e: No Locat ion: [facility] S ource: E[employer] Consultant gina: N Practi ce ID: 0001 Jamari lable Time: 02:45:00 PM Celine lockhart, [facility] 09:58:30 Normal pregnanc y in anetagra luis manuel [id number] 4106 Completed 201703/02/2021 Encounte r for suprvsn of normal pregnanc y, third trimeste r;Record ed Elsewher e: No Locat ion: [facility] S ource: EHR [employer] Consultant gina: N Practi ce ID: 0001 Jamari lable Time: 08:30:00 AM Celine lockhart, [facility] 09:58:56 Gestatio n period, 9 weeks [id number] Completed 201703/02/2021 9 weeks gestatio n of pregnanc y;Record ed Elsewher e: No [facility]at [facility]: EHR [employer] Consultant gina: N Practi ce ID: 0001 Jamari lable Time: 01:00:00 PM Celine lockhart, [facility] 1 09:59:03 Pregnanc y, childbir th and puerperi um finding Completed 201803/02/2021 Encounte r for supervis ion of normal 1st pregnanc y;Record ed Elsewher e: No [facility]at [facility] S [facility]: E[employer] Consultant gina: N Practi ce ID: 0001 Jamari lable Time: 08:30:00 AM Celine lockhart, [facility] 09:58:49 Pregnanc y, childbir th and puerperi um finding Completed 201703/02/2021 Encntr for suprvsn of normal first preg, second trimeste r;Record ed Elsewher e: No Locat ion: [facility] S ource: EHR [employer] Consultant gina: N Practi ce ID: [id number] Jamari lable Time: 09:45:00 AM Celine lockhart [facility] 09:58:51 Gestatio n period, 13 weeks [id number] Completed 201703/02/2021 13 weeks gestatio n of pregnanc y;Record ed Elsewher e: No Locat ion: [facility] S ource: E[employer] Consultant gina: N Practi ce ID: 0001 Jamari lable Time: 02:45:00 PM Celine lockhart, [facility] 09:58:57 Finding of fertilit y Completed 201603/02/2021 Female infertil ity, unspecif ied;Jose Luis rded Elsewher e: No Locat ion: [facility] S ource: E[employer] Consultant gina: N Practi ce ID: [email or web address] Jamari lable Time: 10:30:00 AM Celine [place] richy, [facility] 09:58:38 Gestatio n period, 30 weeks [id number] Completed 201803/02/2021 30 weeks gestatio n of pregnanc y;Record ed Elsewher e: No Locat ion: [facility] S ource: [employer] Consultant gina: N Practi ce ID: 0001 Jamari lable Time: 01:00:00 PM Celine [place] richy, [facility] 09:59:01 Placenta previa [id number] Completed 201703/02/2021 Placenta previa specifie d as w/o hemor, second trimeste r;Record ed Elsewher e: No Locat ion: [facility] S ource: EHR [employer] Consultant gina: N Practi ce ID: [id number] Jamari lable Time: 10:30:00 AM Celine [place] richy, [facility] 09:58:55 Secondar y amenorrh ea [id number] Completed 201703/02/2021 Secondar y amenorrh ea;Pract ice ID: [id number] Celine Sebastian lockhart, [facility] 09:58:31 Antenata l screenin g Completed 201703/02/2021 Encounte r for other specifie d antenata l screenin g;Practi ce ID: 0001 [facility]:58:42 Gestatio n period, 41 weeks [id number] Completed 201803/02/2021 41 weeks gestatio n of pregnanc y;Practi ce ID: 0001 Celine lockhart [facility] 09:58:59 Lacerati on of female perineum Completed 201803/02/2021 Second degree perineal lacerati on during delivery ;Practic e ID: 0001 Celine Cortes [facility] 09:58:40 Labor and delivery complica tion by meconium in amniotic fluid [id number] Completed 201803/02/2021 Labor and delivery complica darlene by meconium in amniotic fluid;Pr actice ID: 0001 Celine Cortes [facility] 09:58:36 Single live from singleto n pregnanc y [id number] Completed 201803/02/2021 Single live ;Pr actice ID: 0001 Celine Cortes [facility] 09:58:35 Notes:Cynthia [facility] - 06/06 8:3 0 & 9:30AM Level II & Consult Problem Notes None recorded. Procedures Surgical History Date Name Laterality Status Provider Name and Address Organization Details Recorded Time 1 Date of Last Pap Smear completed [facility] 04/14/2021 10:24:48 0 Dilation and Curettage completed [facility] 04/14/2021 10:25:36 [facility] of wisdom [facility] 03/02/2021 10:21:57 Dilation and Curettage completed Sandra Hernandez [facility] 05/21/2021 12:02:48 Imaging Results Imaging Date Name Status LastModified by Organization Details LastModified Time 03/09/2021 US, obstetric, transvaginal completed [email or web address] [place] [address], [place], [address], 03/09/2021 11:38:25 03/03/2021 US, obstetric, transvaginal completed [email or web address] [address], [place], [address], 04/14/2021 11:27:29 04/14/2021 US, obstetric, 1st trimester completed [email or web address] [place] [address], [place], [address], 04/14/2021 17:16:44 04/14/2021 US, obstetric, 1st trimester completed Crist[address], [place], [address], 04/15/2021 14:17:00 05/16/2021 US, obstetric completed [email or web address] [address], [place], [address], 05/18/2021 11:55:12 05/16/2021 US, obstetric, limited completed [email or web address] [place] [address], [place], [address], 05/16/2021 14:26:59 06/06/2021 US, obstetric, follow-up completed [email or web address] [facility] (Psychiatry Department) [address] [place] [address], [address], 06/07/2021 09:10:14 06/06/2021 US, obstetric, follow-up completed [email or web address] [facility] [address], [place], [address], 06/07/2021 10:30:46 Procedure Notes None recorded. Medical Equipment None Reported. Allergies Allergen ID Allergen Name Allergen Category Reaction Reaction Severity Criticality Documentation Date Start Date Code Code System Note Provider Name and Address Organization Details Recorded Time 2952 No known allergy (situatio n) Not available Not available Not available Not available 10/01/2020 82000 6003 SNOMED Sandra lockhart [facility] 0 15:50:15 No known drug allergies Medications Name Sig Start Date Stop Date Status Note LastModified by Organization Details LastModified Time docusate sodium 100 mg capsule Take 3 capsules every day by oral route. 03/02 completed Not Available Not Available Not Available Dinorah 0.35 mg tablet Take 1 tablet every day by oral route. 03/02 completed Not Available Not Available Not Available Colace active Not Available Not Availa ble Not Available Vitamin 2017 active Not Available Not Available Not Avai lable 28 mg iron-800 mcg tablet 03/02 completed Prescrib ed Elsewher e: Yes Loca tion: [facility] M odify By: [email or web address] z Encoun ter DateTime : 08/01/20 10:30:00 AM Not Available Not Available Not Available Vitals Date Recorded Body height Body mass index (BMI) Body weight Systolic blood pressure Diastolic blood pressure Provider Name and Address Organization Details Last Updated DateTime 03/03/2021 157.48 cm 39 kg/m2 73635.17 g 130 mm[Hg] 85 mm[Hg] Celine Cortes [facility] 09:39:03 Date Recorded Body height Body mass index (BMI) Systolic blood pressure Diastolic blood pressure Provider Name and Address Organization Details Last Updated DateTime 04/14/2021 157.48 cm 38.6 kg/m2 124 mm[Hg] 75 mm[Hg] Sandra Hernandez [facility] 04/14/2021 10:24:44 Date Recorded Body weight Provider Name an d Address Organization Details Last Updated DateTime 04/14/2021 62862.78363 g Scott Oglesby MD [address], [place], [address], [facility] 04/14/2021 10:44:57 Date Recorded Body height Body mass index (BMI) Body weight Systolic blood pressure Diastolic blood pressure Provider Name and Address Organization Details Last Updated DateTime 05/21/2021 157.48 cm 38.6 kg/m2 02217.99 007 g 122 mm[Hg] 85 mm[Hg] Sandra Hernandez [facility] 12:02:41 Social History Question Answer Notes LastModified by Organizat ion Details LastModified Time Tobacco Smoking Status Never Smoker Kristen lockhart, [facility] 05/16/2021 09:24:39 Do You Have An Advance Directive? No [email or web address] Information not available 03/03/2021 What Is Your Level Of Alcohol Consumption? None [email or web address] Information not available 03/03/2021 Are You Blind Or Do You Have Difficulty Seeing? No Information not available 03/03/2021 What Is Your Level Of Caffeine Consumption? Occasional [email or web address] Information not available 03/03/2021 How Much Tobacco Do You Chew? None [email or web address] Information not available 03/03/2021 In The 14 Days Before Symptom Onset, Have You Had Close Contact With A Laboratory-confir med COVID-19 While That Case Was Ill? No [email or web address] Information not available 03/03/2021 In The 14 Days Before Symptom Onset, Have You Had Close Contact With A Person Who Is Under Investigation For COVID-19 While That Person Was Ill? No [email or web address] Information not available 03/03/2021 Have You Been To An Area Known To Be High Risk For COVID-19? No Information not available 03/03/2021 Are You Deaf Or Do You Have Serious Difficulty Hearing? No [email or web address] Information not available 03/03/2021 What Type Of Diet Are You Following? REGULAR [email or web address] Information not available 03/03/2021 Do You Or Have You Ever Used E-cigarettes Or Vape? Never Used Electronic Cigarettes Information not available 05/16/2021 What Is The Highest Grade Or Level Of School You Have Completed Or The Highest Degree You Have Received? 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 No [email or web address] Information not available 03/03/2021 What Was The Date Of Your Most Recent Tobacco Screening? 09/23/2020 Information not available 05/16/2021 Do You Use Protection During Sex? No [email or web address] Information not available 03/03/2021 Do You Use Your Seat Belt Or Car Seat Routinely? Yes [email or web address] Information not available 03/03/2021 Do You Have Smoke And Carbon Monoxide Detectors In Your Home? Yes [email or web address] Information not available 03/03/2021 Do You Or Have You Ever Used Smokeless Tobacco? Never Used Smokeless Tobacco [email or web address] Information not available 05/16/2021 How Much Tobacco Do You Smoke? No [email or web address] Information not available 09/23/2020 Do You Feel Stressed (tense, Restless, Nervous, Or Anxious, Or Unable To Sleep At Night)? [id number] [email or web address] Information not available 03/03/2021 Do You Use Any Illicit Or Recreational Drugs? No Information not available 03/03/2021 Do You Use Sunscreen Routinely? Yes [email or web address] Information not available 03/03/2021 Have You Used IV Drugs? No Information not available 03/03/2021 Sex: Unknown Functional Status Question Answer Note LastModified by Organization D etails LastModified Time Are you able to walk? [email or web address] Information not available 03/03/2021 What is your exercise level? Moderate [email or web address] Information not available 03/03/2021 Mental Status None recorded. Family History Relationship Description Onset Age of this Age Resolved Age Notes LastModified by Organization Details LastModified Time Brother Bipolar disorder [email or web address] Not available 2020 09:24:39 Mother Hypertensive disorder Not available 2020 10:17:01 Mother Disorder of thyroid gland [email or web address] Not available 05/12/ 2021 10:17:11 Mother Chronic obstructive pulmonary disease [email or web address] Not available 2020 09:24:39 Medical History Condition Response Allergies (Food, seasonal, environmental ) N Other N Breast Cancer N Drug/Latex Allergies/Reactions N Blood Transfusion N Dermatologic Disorders N Lung Disease N Defects or Inherited Disease N Breast Problem N Gestational Diabetes N Hematologic disorders N Anesthesia Complications N History of STI N Deep Vein Thrombosis N Polycystic ovary syndrome N Anxiety Disorder N Autoimmune disease N Arthritis N Infertility N Polyps N Acid Reflux (GERD) N History of abnormal pap N Cancer N Stroke N Varicosities N Neurologic/Epilepsy N Endometriosis N High Cholesterol N Headaches N Fibromyalgia N Kidney Disease N Heart Problems N Kidney or Bladder Problems N Thyroid Problems N GI Problems N Eating Disorder N Anemia N Art (IVF or FET) N Psychiatric Illness N Ovarian Cancer N Diabetes N Pulmonary (TB, Asthma) N Hepatitis/Liver Disease N No Past Medical History N Eczema N Urinary Tract Infection N Abuse/Domestic Violence N Asthma N Trauma/Violence N Depression/ depression N Heart Disease N Pre-Eclampsia N Hypertension N Osteoporosis N Thrombophilias N Gynecological History Statement/Question Response Abnormal Pap N Flow Moderate Date of LMP 01/02/2021 N On BCP's at Conception? N STIs/STDs N Was last menstrual period normal Y HPV Vaccine Y Duration of Flow (days) 5 12 Current Control Method Age at First Child 28 Date of control 01/02/2021 Frequency of Cycle (Q days) 28 Sexually Active? Y None Menses Monthly Y Age of first menstrual cycle 12 Date of Last Pap Smear 03/03/2021 Sexual Problems? N LMP Definite N Obstetrics History GPAL:G 3 P 1 0 1 1 Type Value Full Term 1 Spontaneous 1 Living 1 Total 3 Past Encounters Encounter ID Performer Location Encounter Start Date Encounter Closed Date Diagnosis/Indication Diagnosis SNOMED-CT Code Diagnosis ICD10 Code Diagnosis Note [id number] Sarika Umana CNM [place] [address] [address] 09/23/2020 12:06:12 09/23/2020 14:27:39 Incomplete miscarriage [id number] O03.4 Discussed expectant management , medication , and surgical options. Pt will return within 1 week to discuss further. Bleeding and infection precaution s given. Pt verbalized understand ing. [id number] Scott Oglesby MD [place] [address],[place] [address] 09/23/2020 12:03:27 09/23/2020 15:27:02 Missed miscarriage [id number] O02.1 Z3A.09 [id number] Scott Oglesby MD [place] [address],[place] [address] 10/01/2020 15:20:44 10/01/2020 17:09:35 Missed miscarriage 78190820 O02.1 Z3A.09 I spent more than 25 minutes with the patient. More than 50% was counseling . We discussed treatment options. The patient is going to expectantl y manage the missed . She was given detailed precaution s [place]io [place]. [id number] Scott Oglesby MD [place] [address],[place] [address] 10/11/2020 16:30:23 10/11/2020 17:26:14 Missed miscarriage 82715308 O02.1 Z3A.09 Contracept ion care management 802910771 Z30.9 agreed to start [place]. She was given detailed instructio ns. [id number] Sarika Umana CNM [place] [address],[place] [address] 03/03/2021 09:29:48 03/03/2021 10:31:04 Gynecologic examination 40961937 Z01.419 test positive 250879400 Z32.01 Risk factors addressed: Tobacco Cessation, Safe Sexual Practices, environmen [place], work hazards, travel restrictio ns, seat belt use. Eat a health well balanced diet, avoid alcohol, tobacco, and street drugs. Engage in daily low impact exercise, avoid temperatur e extremes, and cat, rodent, and bird feces. Avoid travel to areas where zika virus is a concern. Offered cf/sma/nip t. Pt ayah garica States she had cf done in last . Handouts given and discussed with patient. Childbirth classes recommende d. New OB sheet given. If previous , counseling . Pt verbalizes that she understand s the importance of above instructio ns. All questions were answered. Patient reminded to have annual well woman examinatio n and address preventati [facility] . [id number] Scott Oglesby MD [place] [address],[place] [address] 03/03/2021 09:30:19 03/03/2021 11:00:03 Uterine size for dates discrepancy 930340834 O26.841 Z3A.01 [id number] MD Alisia Hernández [address],[place] [address] 04/14/2021 09:27:43 04/14/2021 10:15:33 Routine care 209856351 Z34.91 [id number] MD Alisia Hernández [address],[place] [address] 04/14/2021 09:28:38 04/14/2021 10:52:00 Routine care 046110041 Z34.91 [id number] MD Alisia Hernández [address],[place] [address] 05/16/2021 09:24:19 05/16/2021 15:02:51 AND/OR placental disorder affecting management of mother 57073386 O43.102 Z3A.16 [id number] Scott Oglesby MD [place] [address],[place] [address] 05/21/2021 11:54:25 05/21/2021 13:23:59 Routine care 074331660 Z34.91 Health Concerns Section Related Observation LastModified by Organization Detai ls LastModified Time None Recorded Concern Status LastModified by Organization Details LastModified Time None Recorded Advance Directives Directive N: Payers Encounter Date Sequence Insurance Name Policy Number Policy Ozuna Covered Member ID Ozuna Member ID Guarantor Name 03/03/2021 1 [place] [id number] Cristofer Valles [id number] Delma Valles 04/14/2021 1 [place] [id number] Cristofer Valles [id number] Delma Valles 04/14/2021 1 [place] [id number] Cristofer Valles [id number] Delma Valles 05/16/2021 1 [place] [id number] Cristofer Anderson Valles [id number] Delma Reena 05/21/2021 1 [place] [id number] Cristofer Valles [id number] Delma Valles Notes Date Note Type Note Provider Name and Address Organization Details Recorded Time 03/03/2021 text/html Generic HPI TemplateReported bypatient.Notes: x 1 [facility]man[facility] 03/03/2021 10:17:28 OBGyn Episode Ob Episode Information Episode Created Date Number of Fetuses Patient Bloodtype Patient rh Status Prepregnancy Weight lbs Domestic Partner Domestic Partner Phone Father Name Core Shaper Sides Status 03/02/20 21 1 CLOSED Fetus Data First Name Last Name Admitted to NICU Weight (g) Sex Living Outcome Pediatric Complications Fetus ID Race Codes Race Delivery Type , Spontane ous [id number] Rodney Calculation Initial Rodney Date Initial Exam Date Initial Exam Provider Initial Ultrasound Date Last Menstrual Period Date Ultra Sound Weeks Gestation 0 Eighteen To Twenty Week Rodney Update Ultra Sound Date Fundal Height At Umbil Quickening Date Ultra Sound Latest Weeks Gestation Final Rodney Confirmed By Final Rodney Confirmed Date Final Rodney Date Ultra Sound Latest Days Gestation 0 0 Menstrual History Last Menstrual Date Menses Monthly On Bcp Conception Prior Menses Frequency Hcg Plus Date Menarche Onset Age Delivery Information Delivery Date Delivery Type Labor Anesthesia Weeks Gestation Incision Type Labor Labor Length Hrs Delivered By Post Complications Tubal Sterilization Discharge Date Comments 0 9.4 Discharge Information Feeding Method Contraceptive Method Maternal HG B and HCT Levels Ob Episode Information Episode Created Date Number of Fetuses Patient Bloodtype Patient rh Status Prepregnancy Weight lbs Domestic Partner Domestic Partner Phone Father Name Core Shaper Sides Status 03/02/20 21 1 CLOSED Fetus Data First Name Last Name Admitted to NICU Weight (g) Sex Living Outcome Pediatric Complications Fetus ID Race Codes Race Delivery Type 3826.95 5704 F Full Term 9801 Vaginal Delivery Rodney Calculation Initial Rodney Date Initial Exam Date Initial Exam Provider Initial Ultrasound Date Last Menstrual Period Date Ultra Sound Weeks Gestation 0 Eighteen To Twenty Week Rodney Update Ultra Sound Date Fundal Height At Umbil Quickening Date Ultra Sound Latest Weeks Gestation Final Rodney Confirmed By Final Rodney Confirmed Date Final Rodney Date Ultra Sound Latest Days Gestation 0 0 Menstrual History Last Menstrual Date Menses Monthly On Bcp Conception Prior Menses Frequency Hcg Plus Date Menarche Onset Age Delivery Information Delivery Date Delivery Type Labor Anesthesia Weeks Gestation Incision Type Labor Labor Length Hrs Delivered By Post Complications Tubal Sterilization Discharge Date Comments 9 41 Discharge Information Feeding Method Contraceptive Method Maternal HG B and HCT Levels Ob Episode Information Episode Created Date Number of Fetuses Patient Bloodtype Patient rh Status Prepregnancy Weight lbs Domestic Partner Domestic Partner Phone Father Name Core Shaper Sides Status 04/14/20 21 1 B Positive 213 CLOSED Fetus Data First Name Last Name Admitted to NICU Weight (g) Sex Living Outcome Pediatric Complications Fetus ID Race Codes Race Delivery Type [id number] Problems Problem Notes CF neg 2018Pt does not want SMA/NIPT Breast-feeding in Problem Name Start Date End Date Resolution Snomed Code Not e Anomaly of placenta [id number] prominent vascularity noted posterior myometrium Cynthia MFM Level II & Consult 06/06 8:00AM & 9:30AM 7th floor [place] [address] Obesity 185227313 BMI 39 - a ntenatal testing at 37 wks Rodney Calculation Initial Rodney Date Initial Exam Date Initial Exam Provider Initial Ultrasound Date Last Menstrual Period Date Ultra Sound Weeks Gestation 10/23/2021 04/14/2021 03/03/2021 01/02/2021 6 Eighteen To Twenty Week Rodney Update Ultra Sound Date Fundal Height At Umbil Quickening Date Ultra Sound Latest Weeks Gestation Final Rodney Confirmed By Final Rodney Confirmed Date Final Rodney Date Ultra Sound Latest Days Gestation 0 [email or web address] 04/14/2021 10/26/19 22 0 Pre-lance Flowsheet Flowsheet Date 04/14/2021 Zamudio Score Blood Edema Fundus Height Fundus Units Glucose Ketones Leukocytes Nitrite Labor Signs Protein Cervic Dilation Cervic Effacement Cervic Station 13 Type Weight in lbs Pre/Post Dialysis Refused Weight 211.556628410398 BP Diastolic BP Location Tested BP Systolic BP Type 75 L arm 124 sitting Fetus Heart Rate Present A 158 Fetus Movement Comments This patient is a 3 para 1011 at 12 weeks gestation who presents for initial visit. Her dating is based on a 6 week ultrasound. Her infant is measuring 13 weeks today however. We agreed to a final due date of 10/26/2020. The patient an ultrasound today that showed increased vascularity at the juncture of the myometrium/endometrium and placenta. Will follow-up on that with an ultrasound in 4 week. She declined genetic testing. I emphasize the importance of the alpha protein. She will follow-up in 4 weeks. Flowsheet Date 05/16/2021 Zamudio Score Blood Edema Fundus Height Fundus Units Glucose Ketones Leukocytes Nitrite Labor Signs Protein Cervic Dilation Cervic Effacement Cervic Station Type Weight in lbs Pre/Post Dialysis Refused BP Diastolic BP Location Tested BP Systolic BP Type Fetus Heart Rate Present Fetus Movement Comments Flowsheet Date 05/21/2021 Zamudio Score Blood Edema Fundus Height Fundus Units Glucose Ketones Leukocytes Nitrite Labor Signs Protein Cervic Dilation Cervic Effacement Cervic Station 17 trace Type Weight in lbs Pre/Post Dialysis Refused Weight 211.461371059936 BP Diastolic BP Location Tested BP Systolic BP Type 85 R arm 122 sitting Fetus Heart Rate Present A 145 Fetus Movement A No Comments abnormality of the placenta at the interface with the uterus, prominent vascularity, we discussed this. There is possibility of an accreta. she is to see MFM In about 2 and half weeks. We talked about breast-feeding and . Menstrual History Last Menstrual Date Menses Monthly On Bcp Conception Prior Menses Frequency Hcg Plus Date Menarche Onset Age 0301/02/2021 Genetic Screening And Infection History Question Response Note Mental Retardation/Autism false Patient's Age Will Be 35 Years Or Older At Estim ated Date of Delivery false Thalassemia (Dominican, Australian, Mediterranean, Or Background): MCV < 80 false Neural Tube Defect (Meningomyelocele, Spina Bifi da, Or Anencephaly) false Congenital Heart Defect false Down Syndrome false Smith-Sachs (eg, Pentecostal, Cajun, Upper Sorbian-Mexican) f alse Raman Disease false Sickle Cell Disease Or Trait () false Hemophilia Or Other Blood Disorders false Muscular Dystrophy false Cystic Fibrosis false Tracie's Chorea false Intellectual Disability/Autism false If Yes, Was Person Tested For Fragile X? false Other Inherited Genetic Or Chromosomal Disorder false Maternal Metabolic Disorder (eg, Type 1 Diabetes , PKU) false Patient Or Baby's Father Had A Child With Defects Not Listed Above false Recurrent Loss, Or A Stillbirth false Medications (including Suppl ements, Vitamins, Herbs, OTC Drugs), Illicit/Recreational Drugs, Alcohol false If Yes, Agent(s) And Strength/Dosage false Any Other Genetic History false Live With Someone With TB Or Exposed To TB false Patient Or Partner Has History Of Genital Herpes false Rash Or Viral Illness Since Last Menstrual Perio d false History Of STD, Gonorrhea, Chlamydia, HPV, Syphi lis false Other Infection History false History of HIV false History of Hepatitis false Prior GBS-infected child false Hemoglobinopathy Or Carrier false Other Structural Defect false Recent Travel History Outside of Country false Delivery Information Delivery Date Delivery Type Labor Anesthesia Weeks Gestation Incision Type Labor Labor Length Hrs Delivered By Post Complications Tubal Sterilization Discharge Date Comments Discharge Information Feeding Method Contraceptive Method Maternal HG B and HCT Levels
[2025-02-23 10:57] LABS: Syphilis IgG/IgM Antibody Negative (Negative)
[2025-02-23 11:02] LABS: HIV 1/2 Ab P24 Ag Result Negative (Negative)
[2025-02-23 11:44] LABS: Glucose 1 Hour Gest 183 mg/dL (>/=180)
[2025-02-23 13:38] LABS: Glucose 2 Hour Gest 162 mg/dL (>/= 155)
[2025-02-23 13:56] LABS: Glucose 3 Hour Gest 125 mg/dL (>/=140)
== END 2025-02-23 09:48 | disposition home or self-care (01) ==
PROVIDERS: PCP Internal Medicine; Visit Provider Obstetrics & Gynecology
DX: Z34.83 Encounter for supervision of other normal pregnancy, third trimester (principal); Z3A.00 Weeks of gestation of pregnancy not specified
CPT/HCPCS: 36415; 82951; 82952; 85014; 85018; 86593; 86703; G0432

== ENCOUNTER 2025-04-08 08:15 | Outpatient (RCR) | payer OTHER, SELFPAY ==
--- NOTE | 2025-04-08 12:12 | PCDIET ---
GDM MNT consult completed.
== END 2025-06-28 23:59 | disposition home or self-care (01) ==
LOC: ANHDMC 08:15
PROVIDERS: PCP Internal Medicine; Visit Provider Obstetrics & Gynecology
DX: O24.319 Unspecified pre-existing diabetes mellitus in pregnancy, unspecified trimester (principal); Z71.89 Other specified counseling
CPT/HCPCS: 97802; G0108

== ENCOUNTER 2025-05-17 16:30 | Outpatient (RCR) | payer OTHER, SELFPAY ==
[2025-04-01 10:46] VITALS: BP 125/85; PULSE 83
[2025-04-05 18:55] VITALS: BP 117/62; PULSE 90
[2025-04-08 12:06] VITALS: BP 112/63; PULSE 78
[2025-04-12 15:47] VITALS: BP 120/71; PULSE 76
[2025-04-16 17:00] VITALS: BP 105/62; PULSE 81
[2025-04-19 17:08] VITALS: BP 125/49; PULSE 76
[2025-04-22 15:56] VITALS: BP 115/73; PULSE 84
[2025-04-26 16:58] VITALS: BP 105/64; PULSE 82
[2025-04-29 15:10] VITALS: BP 114/53; PULSE 73
[2025-05-03 17:07] VITALS: BP 116/71; PULSE 79
[2025-05-07 09:08] VITALS: BP 123/62; PULSE 76
[2025-05-10 17:23] VITALS: BP 112/69; PULSE 87
[2025-05-13 12:21] VITALS: BP 119/66; PULSE 78
--- NOTE | ~2025-05-17 | US_ITS ---
EXAM: US OB follow up w BPP - 04/29/2025 15:24 CDT History: 34 years old Female with EFW and BPP Comparison: None available. Technique Real time transabdominal obstetric sonographic imaging was performed. Findings A single live intrauterine gestation is identified. Lie: longitudinal Presentation: vertex Is interposition: Anterior heart rate: 125 beats per minute ZEE: 7.98 cm, which is between the fifth th and 95th th percentiles (7.5 cm and 24.4 cm respectively) . Biophysical profile: breathing movement: 2 Gross body movement: 2 tone: 2 Qualitative AFV: 2 Total BPP score: 8 of 8. Impression Total biophysical profile score is 8 out of 8. Reviewed, dictated and finalized at location A. Impression Total biophysical profile score is 8 out of 8.
[2025-05-17 18:36] VITALS: BP 118/58; PULSE 71
== END 2025-05-21 09:45 | disposition other institution (70) ==
LOC: ANHOBOP 16:30
PROVIDERS: Visit Provider Obstetrics & Gynecology
DX: O24.419 Gestational diabetes mellitus in pregnancy, unspecified control (principal); Z3A.33 33 weeks gestation of pregnancy
CPT/HCPCS: 59025; 76816; 76819

== ENCOUNTER 2025-05-19 05:04 | Inpatient (IN) | payer OTHER, SELFPAY ==
[2025-05-19] VITALS (95 sets, daily range): BP systolic 109–158; BP diastolic 57–91; PULSE 70–119; RESP 16; TEMP 36.1–37.6; O2SAT 95–100
[2025-05-19 05:50] LABS: Hematocrit 34.7 % (37.0-47.0); Hemoglobin 11.0 g/dL (12.0-15.0); Immature Granulocyte Percent A 0.6 % (0-0.5); Lymphocytes Absolute Auto 2.02 K/mm3 (0.9-3.2); Mean Corpuscular HGB Conc 31.7 g/dl (32-36); Mean Corpuscular Hemoglobin 25.6 pg (26-34); Mean Corpuscular Volume 80.9 fl (80-100); Nucleated Red Blood Cells Absolute Auto 0.000 K/mm3 (0.0-0.012); Nucleated Red Blood Cells Perc 0.0 % (0.0-0.2); Platelet Count Result 231 k/mm3 (150-375); Red Blood Count 4.29 M/mm3 (4.2-5.4); White Blood Count 9.9 K/mm3 (4.5-10.0)
--- NOTE | 2025-05-19 06:08 | LDADM ---
This patient, Delma Valles, was admitted to Labor/Delivery/Recovery 104 on 05/19/25 at 05:04. Plans for labor, pain management and were discussed with patient. Patient/family oriented to hospital policies and general routines including ID bracelet, bed and alarms, visiting hours, pain management, procedures, bathroom and other care routines, personal items, smoking policy, room service/diet and guest tray routines, infant security routines, and visiting hours. Patient/Family are encouraged to report perceived risks to care and to ask questions if they do not understand what they are told or what they should do. See OBIX for further documentation.
[2025-05-19 06:33] LABS: Syphilis IgG/IgM Antibody Non-Reactive (Nonreactive)
[2025-05-19] MEDS: LACTATED RINGERS 1,000 ML 125 ML IV CONT ×2 (06:43→11:46)
[2025-05-19] MEDS: OXYTOCIN 30 UNITS/NS 500 ML 30 UNITS/500 ML BAG IV CONT (06:43)
[2025-05-19 06:45] LABS: Alanine Aminotransferase 15 U/L (6-35); Albumin Level 3.5 g/dL (3.5-5.1); Alkaline Phosphatase 241 U/L (38-126); Anion Gap 8 mmol/L (4-12); Aspartate Amino Transferase 24 U/L (14-36); Bilirubin,Total 0.3 mg/dL (0.2-1.3); Blood Urea Nitrogen 13 mg/dL (7-17); Calcium 9.4 mg/dL (8.4-10.2); Carbon Dioxide 19 mmol/L (22-30); Chloride 108 mmol/L (98-107); Estimated Glomerular Filt Rate > 60; Glucose 107 mg/dL (65-110); Potassium 3.9 mmol/L (3.4-5.0); Sodium 135 mmol/L (137-145); Total Protein 7.0 g/dL (6.3-8.2)
--- NOTE | 2025-05-19 08:29 | PM.IMHP ---
H&P: HPI History of Present Illness Date/Time: 05/19/25 08:29 Chief Complaint: Here for induction of labor. Narrative: 34 y/o at 39 6/7 weeks here for induction of labor. She has A2DM, on glyburide 2.5 mg qhs, with good glycemic control and normal testing. GBS neg. Chlamydia treated in with negative test of cure. Baby 84th %ile on ultrasound. She has a history of 3rd degree laceration with her first baby, had subsequent 9#8oz. Review of Systems Review of Systems: All systems reviewed & are unremarkable except as noted in HPI and below PMFSH Past Medical History Medical History Anemia Gestational diabetes Healthy female adult Family History Family History Grandparent Cerebrovascular accident Mother Chronic obstructive pulmonary disease Hypertension Father Multiple sclerosis Sibling Bipolar 1 disorder Social History Social History Smoking status: Never smoker Alcohol intake: never Substance use: never Substance use type: does not use Lack of Transportation: No Lack of Food: Never True Current Housing: I Have Housing Concerned About Future Housing: No Difficulty Paying Gas/Electric Bills: No Difficulty Paying for Meds: No Currently Unemployed: No Education: Bachelor's Degree Difficulty w/ Childcare or Family Care: No Gender identity (if verbalized by the patient): Female Sexual Orientation (if Verbalized by the Patient): Straight or Heterosexual Spiritual care concerns: No Meds Home Medications and Allergies Home Medications ?Medication ?Instructions ?Recorded ?Confirmed ?Type docusate sodium 100 mg capsule 300 mg PO DAILY 09/26/21 05/18/25 History (Colace) prenat.vits,kunal,ptl-fkid-mnomq 1 tablet PO DAILY 09/26/21 05/19/25 History ferrous sulfate 325 mg (65 mg 325 mg PO DAILY #30 tabs 10/24/21 05/19/25 Rx iron) tablet glyburide 2.5 mg tablet 2.5 mg PO DAILY 04/12/25 05/19/25 History Allergies Allergy/AdvReac Type Severity Reaction Status Date / Time No Known Allergies Allergy Verified 05/19/25 06:00 Vital Signs Vital Signs - 24 hr 05/19/25 05:25 05/19/25 05:26 05/19/25 05:27 Temperature 97 F L Pulse Rate Blood Pressure Pulse Oximetry 98 97 Oxygen Delivery 05/19/25 05:32 05/19/25 05:34 05/19/25 05:37 Temperature Pulse Rate Blood Pressure Pulse Oximetry 98 98 Oxygen Delivery Room Air 05/19/25 05:42 05/19/25 05:47 05/19/25 05:51 Temperature Pulse Rate 82 Blood Pressure 126/70 Pulse Oximetry 97 98 Oxygen Delivery 05/19/25 05:52 05/19/25 05:57 05/19/25 06:01 Temperature Pulse Rate 82 Blood Pressure 123/72 Pulse Oximetry 99 99 Oxygen Delivery 05/19/25 06:02 05/19/25 06:07 05/19/25 06:12 Temperature Pulse Rate Blood Pressure Pulse Oximetry 99 98 100 Oxygen Delivery 05/19/25 06:17 05/19/25 06:22 05/19/25 06:27 Temperature Pulse Rate Blood Pressure Pulse Oximetry 99 99 98 Oxygen Delivery 05/19/25 06:31 05/19/25 06:32 05/19/25 06:36 Temperature Pulse Rate 80 Blood Pressure 118/65 Pulse Oximetry 98 99 Oxygen Delivery 05/19/25 06:41 05/19/25 06:46 05/19/25 06:51 Temperature Pulse Rate Blood Pressure Pulse Oximetry 98 98 98 Oxygen Delivery 05/19/25 06:56 05/19/25 07:01 05/19/25 07:06 Temperature Pulse Rate 79 Blood Pressure 125/71 Pulse Oximetry 98 99 99 Oxygen Delivery 05/19/25 07:11 05/19/25 07:16 05/19/25 07:21 Temperature Pulse Rate Blood Pressure Pulse Oximetry 100 98 100 Oxygen Delivery 05/19/25 07:26 05/19/25 07:31 05/19/25 07:36 Temperature Pulse Rate 80 Blood Pressure 134/84 Pulse Oximetry 99 99 98 Oxygen Delivery 05/19/25 07:41 05/19/25 07:46 05/19/25 07:59 Temperature Pulse Rate Blood Pressure Pulse Oximetry 99 100 98 Oxygen Delivery 05/19/25 08:01 05/19/25 08:04 05/19/25 08:09 Temperature Pulse Rate 82 Blood Pressure 143/66 H Pulse Oximetry 98 98 Oxygen Delivery 05/19/25 08:14 05/19/25 08:19 05/19/25 08:24 Temperature Pulse Rate Blood Pressure Pulse Oximetry 98 99 98 Oxygen Delivery 05/19/25 08:29 Temperature Pulse Rate Blood Pressure Pulse Oximetry 99 Oxygen Delivery Exam Const: Orientation/consciousness: patient oriented x3 Other: Well-developed, well-nourished female in no acute distress. Neck: Thyroid: thyroid normal Lymphatic: no lymphadenopathy noted (in neck, axilla or inguinal nodes) Resp: Effort & Inspection: normal respiratory effort Auscultation: clear to auscultation bilaterally Cardio: Rate: regular rate Rhythm: regular rhythm Heart sounds: S1 normal heart sound present and S2 normal heart sound present GI: Other: ABD: Soft, nontender, nondistended, gravid. NST reactive. TOCO: contractions every 3-4 min. No guarding or rebound tenderness. No hepatosplenomegaly. : General: Yes no CVA tenderness Other: Cervix 3-4 / 50 / -2. AROM with clear fluid. Vertex. Back/Spine/Pelvis: Back: no CVA tenderness Skin: General skin exam: normal color and no rashes or lesions noted Neuro: General: patient oriented x3 Extrem: Other: Extremities: nontender with no edema Psych: Mental Status: mental status grossly normal Affect: normal affect H&P: Results Labs Labs: Short CBC 05/19/25 Range/Units 05:44 WBC 9.9 (4.5-10.0) K/mm3 Hgb 11.0 L (12.0-15.0) g/dL Hct 34.7 L (37.0-47.0) % Plt Count 231 (150-375) k/mm3 [facility] 05/19/25 06:24 Sodium 135 L Potassium 3.9 Chloride 108 H Carbon Dioxide 19 L BUN 13 D Creatinine 0.64 L Glucose 107 Calcium 9.4 Liver Function 05/19/25 Range/Units 06:24 Total Bilirubin 0.3 (0.2-1.3) mg/dL AST 24 (14-36) U/L ALT 15 (6-35) U/L Alkaline Phosphatase 241 H (38-126) U/L Albumin 3.5 (3.5-5.1) g/dL Assessment and Plan Assessment and plan (1) Term : Code(s): Z34.90 - Encounter for supervision of normal , unspecified, unspecified trimester Status: Acute Assessment and Plan: A: IUP at 39 2/7 weeks. A2DM with good glycemic control. P: Offered induction of labor. We reviewed risks, benefits, alternatives in detail and she elects to proceed. Anticipate . Monitor accuchecks through labor. (2) Gestational diabetes: Qualifiers: Gestational diabetes mellitus control: oral hypoglycemic-controlled Trimester: third trimester Qualified Code(s): O24.415 - Gestational diabetes mellitus in , controlled by oral hypoglycemic drugs Code(s): O24.419 - Gestational diabetes mellitus in , unspecified control Status: Acute
[2025-05-19] MEDS: OXYTOCIN 30 UNITS/NS 500 ML 30 UNITS/500 ML BAG 999 UNITS IV CONT (14:35)
--- NOTE | 2025-05-19 14:40 | S_PTH ---
PATIENT: Delma Valles V LOC: [facility] U#:[id number] AGE/SX: 34/F ROOM: 277 RE05/19/[address]: Lucien Johnston MD : 1990 BED: 00 DIS: 05/20/2025 SPEC #: [id number] RECD: 05/20/25 10:57 STATUS: DEVAUGHN REQ #: [id number] LUBA: 05/19/25 14:[address]: Lucien Johnston DEPT: [facility] Surgical RECD BY: Anisha Mckeon ENTERED: 05/20/25 10:57 SP TYPE: Surgical OTHR DR: UNKNOWN,DOCTOR Tissues: A - Placenta Procedures: Hematoxylin and Eosin Stain Gross and Microscopic Level 5
--- NOTE | 2025-05-19 14:54 | PM.OBPRVD ---
OB - Vaginal Delivery Note Procedure Delivery date: 05/19/25 Events: Gestational Diabetes Induction method: Per Pitocin Protocol Delivery augmentation: Rupture of Membranes Delivery monitor: External FHT and External Uterine Route of delivery: Episiotomy description: None Laceration Description: Perineal - 2nd Degree Delivery repair: vicryl (3-0) Specimen: Yes (cord blood, placenta) Quantitative Blood Loss (ml): 140 Anesthesia type: Local (1% lidocaine) Disposition: PACU Complications: None Narrative: 34 y/o at 39 6/7 weeks gestation who presented to the hospital for induction of labor. Oxytocin was administered intravenously. Amniotomy was performed with return of clear fluid. Accuchecks were normal throughout labor. Her labor progressed and her cervix dilated completely. She pushed with good effort and delivered the 's head to the perineum. A loose nuchal cord was splinted and the body delivered. The cord was reduced, and the nose and mouth were bulb suctioned. After a delay, the cord was clamped and cut. The infant was handed off the field. Cord blood was collected. The placenta delivered spontaneously and was grossly normal in appearance. The usual 3 vessel cord was noted. A second degree midline perineal laceration was sustained. This was infiltrated with 7 mL of 1% lidocaine and reapproximated using 3 0 Vicryl in the usual layered fashion. Excellent hemostasis resulted as did excellent reapproximation of the normal anatomy. Needle and instrument counts were correct. The patient was taken to recovery room in stable condition. The infant went to the nursery in stable condition. I was present and scrubbed for the entire delivery. Baby Date of : 05/19/25 Time of : 14:33 Gestational Age by Date: 39 Infant gender: Male Weight (pounds): 9 Weight (ounces): 6 presentation: vertex position: Right Occiput Anterior Placenta delivery description: Spontaneous and Normal Configuration Cord Vessel Description: 3 Vessels, Nuchal Cord and Delayed Cord Clamping score one minute: 8 score five minutes: 9
[2025-05-19] MEDS: LIDOCAINE 1% LOCAL INJ 20 ML VIAL (14:55)
--- NOTE | 2025-05-19 14:56 | PM.OBDSVD ---
DS: Admitting Diagnosis Discharge Date 05/20/25 Admitting Diagnosis IUP at 39 6/7 weeks A2DM DS: Discharge Diagnosis Discharge Diagnosis (1) (normal spontaneous vaginal delivery): Code(s): O80 - Encounter for full-term uncomplicated delivery Status: Acute (2) Gestational diabetes: Qualifiers: Gestational diabetes mellitus control: oral hypoglycemic-controlled Trimester: third trimester Qualified Code(s): O24.415 - Gestational diabetes mellitus in , controlled by oral hypoglycemic drugs Code(s): O24.419 - Gestational diabetes mellitus in , unspecified control Status: Acute OB - DS: Summary OB Procedures : None OB Procedures Intrapartum: Spontaneous Vag Delivery OB Procedures: : None Time Spent with Patient Time attestation: Total time spent providing and/or coordinating discharge services: DS: Data Data Completed and Pending Labs on day of discharge: Labs from last 24 hours 05/19/25 05/19/25 05/19/25 10:29 06:24 05:44 WBC 9.9 RBC 4.29 Hgb 11.0 L Hct 34.7 L MCV 80.9 MCH 25.6 L MCHC 31.7 L RDW 14.7 H Plt Count 231 MPV 10.3 Immature Gran % (Auto) 0.6 H Neut % (Auto) 73.5 H Lymph % (Auto) 20.4 [place] % (Auto) 4.6 Eos % (Auto) 0.6 Baso % (Auto) 0.3 Lymph # (Auto) 2.02 [place] # (Auto) 0.5 Eos # (Auto) 0.1 Baso # (Auto) 0.0 Abs Immat Gran (auto) 0.06 H Absolute Neuts (auto) 7.3 H Absolute Nucleated RBC 0.000 Nucleated RBC % 0.0 Sodium 135 L Potassium 3.9 Chloride 108 H Carbon Dioxide 19 L Anion Gap 8 BUN 13 D Creatinine 0.64 L Estim Creat Clear Calc Not Reportable Estimated GFR > 60 Glucose 107 POC Capillary Glucose 85 Calcium 9.4 Total Bilirubin 0.3 AST 24 ALT 15 Alkaline Phosphatase 241 H Total Protein 7.0 Albumin 3.5 Syphilis IgG/IgM Ab Non-reactive Blood Type B Positive Antibody Screen Negative Discharge Plan Discharge Attending physician on discharge: Lucien Johnston Discharging Clinician: Lucien Johnston Patient Disposition: Home Activity: pelvic rest Diet: regular Discharge Instructions: Call or return if temperature above 100.4? F, increased abdominal pain, increased vaginal bleeding or any new problems. Patient Language: [place] Stand Alone Forms: General Discharge Information Follow-up/Referrals: Lucien Johnston MD [Physician] - 6 Weeks Discharge Medications: New ibuprofen 600 mg tablet 600 mg PO Q6H PRN (Reason: cramps) Qty: 30 0RF ferrous sulfate 325 mg (65 mg iron) tablet 325 mg PO DAILY Qty: 30 0RF Continued prenat.vits,kunal,vus-hbeb-hwqeq Tablet 1 tablet PO DAILY docusate sodium [Colace] 100 mg Capsule 300 mg PO DAILY Discontinued ferrous sulfate 325 mg (65 mg iron) tablet 325 mg PO DAILY Qty: 30 0RF glyburide 2.5 mg tablet 2.5 mg PO DAILY Date of admission: 05/19/25 05:04 Primary Care Provider: UNKNOWN,DOCTOR Admitting Provider: Lucien Johnston Attending physician on admission: Lucien Johnston Condition: Stable
[2025-05-19] MEDS: OXYTOCIN 30 UNITS/NS 500 ML 30 UNITS/500 ML BAG 125 UNITS IV CONT (15:06)
[2025-05-19] MEDS: ACETAMINOPHEN 325 MG TABLET 650 MG PO ×2 (15:35→22:23)
[2025-05-19] MEDS: IBUPROFEN 600 MG TABLET PO ×2 (15:36→22:23)
[2025-05-19] MEDS: BENZOCAINE 20% AER SPR (*SP) 56 GM CAN 1 SPRAY TOPICAL (19:30)
[2025-05-19] MEDS: WITCH HAZEL 40 PADS 1 PAD TOPICAL (19:30)
[2025-05-20 00:55] VITALS: BP 104/57; PULSE 71; RESP 14; TEMP 36.9; O2SAT 100
[2025-05-20] MEDS: ACETAMINOPHEN 325 MG TABLET 650 MG PO (04:18)
[2025-05-20] MEDS: IBUPROFEN 600 MG TABLET PO (04:18)
[2025-05-20 04:34] VITALS: BP 111/68; PULSE 81; RESP 14; TEMP 36.9; O2SAT 100
[2025-05-20 05:17] LABS: Hematocrit 29.7 % (37.0-47.0); Hemoglobin 9.2 g/dL (12.0-15.0)
[2025-05-20] MEDS: MULTIVIT/MIN/PREN/FOL AC/IRON TABLET 1 TAB PO (07:25)
[2025-05-20] MEDS: DOCUSATE SODIUM 100 MG CAPSULE PO (07:25)
[2025-05-20 08:15] VITALS: BP 127/68; PULSE 84; RESP 16; TEMP 36.1; O2SAT 98
--- NOTE | 2025-05-20 08:25 | PC.NURSE ---
Mother verbalizes she is able to independently latch with appropriate positioning and alignment. We reviewed how to move 's nose away from the breast by repositioning. She denies any nipple discomfort and is responsively . She breastfed her other 2 children. Infant is currently meeting outcomes for weight, output, jaundice, blood sugar and feeding frequencies of 8-12 times in 24 hours. Mother declines any additional assistance or education at this time. She has a breast pump at home and does not need a WIC referral. Mother is encouraged to call for assistance if her doesn?t latch, pain with latching, questions or concerns. Mother voiced understanding of information shared along with the mom/baby guide for an additional resource. Reported to the Primary RN.
--- NOTE | 2025-05-20 12:58 | P.PNOB_ITS ---
OB - PN: Subj Subjective Date/time seen: 05/20/25 12:58 Narrative: Pain OK. Would like circumcision for son. Would like to go home. OB - PN: Obj Data Labs 05/20/25 04:19 05/19/25 06:24 Labs: Laboratory Results - last 24 hr 05/20/25 04:19 Hgb 9.2 L Hct 29.7 L OB - PN A/P Plan Comments: A: PPD#1, doing well. P: Reviewed circ. Home to f/u 6 weeks. Time Spent With Patient Time: Total time spent is greater than 50% in coordination of care (as documented) at patient's floor/unit and/or counseling patient: Exam 2 Psych: Other: AVSS ABD soft, nontender, fundus firm EXT nontender
[2025-05-21 09:31] VITALS: BP 132/81; PULSE 79; RESP 18; TEMP 36.4; O2SAT 99
== END 2025-05-20 15:56 | disposition home or self-care (01) | DRG 807 ==
LOC: ANHLDR 05:07 → ANHOB2 16:52
PROVIDERS: Admitting Provider Obstetrics & Gynecology; Visit Provider Obstetrics & Gynecology
DX: O24.425 Gestational diabetes mellitus in childbirth, controlled by oral hypoglycemic drugs (principal); Z37.0 Single live birth; Z3A.39 39 weeks gestation of pregnancy; O70.1 Second degree perineal laceration during delivery; O69.81X0 Labor and delivery complicated by cord around neck, without compression, not applicable or unspecified
CPT/HCPCS: 36415; 80053; 82948; 85014; 85018; 85025; 86593; 86850; 86900; 86901; 88307; A9270; J2003; J2590; J7120

== ENCOUNTER 2025-05-26 13:21 | Outpatient (CLI) | payer OTHER, SELFPAY ==
[2025-05-26 14:06] LABS: Hematocrit 31.3 % (37.0-47.0); Hemoglobin 10.0 g/dL (12.0-15.0); Mean Corpuscular HGB Conc 31.9 g/dl (32-36); Mean Corpuscular Hemoglobin 26.0 pg (26-34); Mean Corpuscular Volume 81.5 fl (80-100); Platelet Count Result 267 k/mm3 (150-375); Red Blood Count 3.84 M/mm3 (4.2-5.4); White Blood Count 6.8 K/mm3 (4.5-10.0)
[2025-05-26 14:26] LABS: Alanine Aminotransferase 27 U/L (6-35); Albumin Level 3.5 g/dL (3.5-5.1); Alkaline Phosphatase 144 U/L (38-126); Anion Gap 8 mmol/L (4-12); Aspartate Amino Transferase 26 U/L (14-36); Bilirubin,Total 0.3 mg/dL (0.2-1.3); Blood Urea Nitrogen 14 mg/dL (7-17); Calcium 8.7 mg/dL (8.4-10.2); Carbon Dioxide 22 mmol/L (22-30); Chloride 108 mmol/L (98-107); Estimated Glomerular Filt Rate > 60; Glucose 92 mg/dL (65-110); Potassium 3.9 mmol/L (3.4-5.0); Sodium 138 mmol/L (137-145); Total Protein 6.8 g/dL (6.3-8.2)
== END 2025-05-26 13:22 | disposition home or self-care (01) ==
LOC: ANHLAB 13:22
PROVIDERS: Visit Provider Obstetrics & Gynecology
DX: O16.5 Unspecified maternal hypertension, complicating the puerperium (principal); Z3A.00 Weeks of gestation of pregnancy not specified
CPT/HCPCS: 36415; 80053; 85027

== ENCOUNTER 2025-10-06 09:58 | Outpatient (CLI) | payer OTHER, SELFPAY ==
[2025-10-06 10:45] LABS: Alanine Aminotransferase 53 U/L (6-35); Albumin Level 4.5 g/dL (3.5-5.1); Alkaline Phosphatase 160 U/L (38-126); Anion Gap 8 mmol/L (4-12); Aspartate Amino Transferase 37 U/L (14-36); Bilirubin,Total 0.5 mg/dL (0.2-1.3); Blood Urea Nitrogen 16 mg/dL (7-17); Calcium 9.4 mg/dL (8.4-10.2); Carbon Dioxide 26 mmol/L (22-30); Chloride 103 mmol/L (98-107); Estimated Glomerular Filt Rate > 60; Glucose 96 mg/dL (65-110); Potassium 4.1 mmol/L (3.4-5.0); Sodium 137 mmol/L (137-145); Total Protein 8.1 g/dL (6.3-8.2)
== END 2025-10-06 09:59 | disposition home or self-care (01) ==
LOC: ANHLAB 09:59
PROVIDERS: Visit Provider Obstetrics & Gynecology
DX: O24.415 Gestational diabetes mellitus in pregnancy, controlled by oral hypoglycemic drugs (principal); Z3A.00 Weeks of gestation of pregnancy not specified
CPT/HCPCS: 36415; 80053